=== PATIENT | female | born 1930 | race Caucasian/White ===

== ENCOUNTER 2018-05-18 08:07 | Inpatient (IN) ==
[2018-05-18] MEDS ORDERED: 0.9 % SODIUM CHLORIDE 1,000 ML IV ONE (08:47)
[2018-05-18] MEDS ORDERED: KETOROLAC 30 MG/ML VIAL IV ONE (08:49)
--- NOTE | 2018-05-18 08:52 | Emergency Department Note ---
Fall HPI - General Chief Complaint: Fall Stated Complaint: Fall, back pain Time Seen by Provider: 05/18/18 08:35 Source: patient, EMS Mode of arrival: EMS Limitations: altered mental status - History of Present Illness HPI Narrative: 87-year-old female comes in today status post fall via EMS. Relatively poor historian rambling-she keeps insisting she had labs done last week when in fact there were 2 months ago. She had elevated blood pressure and temperature. Apparently the fall situation was after she took a medicine she felt weak she sort of lost her balance when she reached forward and slid herself to the floor and since then has been having some lower back pain. She states she has not urinated this morning nor is she taking most of her medicines. She did not lose consciousness or hit her head. Recently diagnosed with Parkinson's - Related Data Previous Rx's Medication Instructions Recorded cholecalciferol (vitamin D3) 5,000 5,000 unit PO .COMPLEX #4 cap 04/09/15 unit capsule tizanidine 4 mg capsule 2 mg PO TID #135 cap 06/04/15 citalopram 20 mg tablet 20 mg PO BID 30 Days #60 tab 09/05/15 doxepin 50 mg capsule 150 mg PO QHS 30 Days #90 cap 09/05/15 ergocalciferol (vitamin D2) 50,000 50,000 unit PO QWEEK #8 cap 09/05/15 unit capsule oxybutynin chloride ER 5 mg 5 mg PO QDAY #30 tab 09/05/15 tablet,extended release 24 hr isosorbide mononitrate ER 30 mg 30 mg PO QAM #90 tab 09/09/15 tablet,extended release 24 hr albuterol sulfate HFA 90 2 puff INHALATION Q6H #18 g 09/29/15 mcg/actuation aerosol inhaler hydrocodone 7.5 mg-ibuprofen 200 1 tab PO QID PRN #90 tab 11/03/15 mg tablet nitroglycerin 0.4 mg sublingual 0.4 mg SUBLINGUAL Q5M PRN #25 tab 01/07/16 tablet HYDROcodone/APAP 10/325MG [[place] 1 tab PO Q4H PRN #15 tablet 09/06/16 10/325Mg] Allergies Allergy/AdvReac Type Severity Reaction Status Date / Time acetaminophen [From Tylenol] AdvReac Unknown Unknown Verified 05/18/18 08:09 Review of Systems All systems ED: reviewed and negative except as stated. Fall PMH - Past Medical History Attestation: Yes: The following information was validated with the patient. [facility] Narrative: Family History Unknown Asthma Atherosclerosis of coronary artery Mother Chronic obstructive pulmonary disease Father Malignant neoplasm of colon Medical History Rib fracture (Acute) Compression fracture (Acute) Ribs, multiple fractures (Acute) Hematoma (Acute) Vitamin D deficiency (Chronic) Stricture and stenosis of esophagus (Chronic) Prediabetes (Chronic) Osteoporosis (Chronic) Osteoarthritis (Chronic) Menopausal syndrome (Chronic) Hypertension, essential (Chronic) Hyperlipidemia (Chronic) History of colonic polyps (Chronic) Chronic obstructive pulmonary disease (Chronic) Past Surgical History History of adenoidectomy (Resolved) History of arthroplasty of left hip (Resolved) History of cataract surgery (Resolved) History of ear surgery (Resolved) History of tonsillectomy (Resolved) History of umbilical hernia repair (Resolved) History of varicose vein stripping (Resolved) Medical history: Reports: asthma, COPD, hyperlipidemia, hypertension, osteoporosis, other (pneumonia on antibiotics) Psychiatric history: Reports: depression - Social History smoking status: Current every day smoker Alcohol use: Reports: None Drug use: Reports: none Physical Exam Normocephalic atraumatic. Conjunctive are clear sclerae nonicteric. No nasal discharge or congestion. Oropharynx is pink and moist. Neck is supple without lymphadenopathy thyromegaly or carotid bruit. Heart is regular rate and rhythm no murmur appreciated. Lungs are clear to auscultation bilaterally without wheezes rales rhonchi or respiratory distress. Abdomen is soft nontender nondistended. Normoactive bowel sounds. No peritoneal signs or guarding. No pedal edema. +2 radial pulse. Alert oriented. Seems to have some short-term memory deficit. I did examine her lower back as much as she would allow me to. She says it hurts for her to sit up; I do not feel any definite step-off or deformity. Pain is located at the right paraspinal area and is worse with palpation. Leg movement does not seem to exacerbate it. Does not radiate. Limitations: altered mental status Course Vital Signs Temperature 97.0 F 05/18/18 08:09 Pulse Rate 78 05/18/18 08:09 Respiratory Rate 16 05/18/18 08:09 Blood Pressure 147/93 05/18/18 08:09 Pulse Oximetry (%) 95 05/18/18 08:09 Temperature 97.0 F 05/18/18 08:09 Pulse Rate 78 05/18/18 08:13 Respiratory Rate 16 05/18/18 08:09 Blood Pressure 147/93 05/18/18 08:13 Pulse Oximetry (%) 97 05/18/18 08:13 Disposition Pt seen by STORYBOARD ARTIST/PA only: No Summary: After interviewing and examining patient ordered workup with laboratory and x- ray. Patient will be checked out to Dr. Sams at shift change for follow-up on the studies, further care and disposition Disposition: Still a Patient Condition: Fair Referrals: Swati Randhawa ARNP [Primary Care Provider] -
[2018-05-18 09:33] LABS: Basophils # (Auto) 0 K/mcL (0.0-0.3); Basophils % (Auto) 0.2 % (0.0-2.0); Eosinophils # (Auto) 0 K/mcL (0.0-0.7); Eosinophils % (Auto) 0.4 % (0.0-7.0); Granulocytes % (Auto) 73.1 % (38.0-78.0); Lymphocytes # (Auto) 1.3 K/mcL (1.5-4.8); Lymphocytes % (Auto) 18.2 % (15.5-49.0); Mean Cell Volume 90.6 fL (80.0-100.0); Mean Corpuscular HGB Conc 33.3 g/dL (31.0-36.0); Mean Corpuscular Hemoglobin 30.2 pg (26.0-34.0); Monocytes # (Auto) 0.6 K/mcL (0.1-0.9); Monocytes % (Auto) 8.1 % (1.0-12.0); Platelet Count 286 K/mcL (140-440); RBC 4.52 M/mcL (4.00-5.20); Red Cell Distribution Width 14.2 % (11.5-14.5)
[2018-05-18 09:56] LABS: ALT/SGPT 13 U/l (0-40); Albumin 3.7 gm/dL (3.2-5.2); Albumin/Globulin Ratio 1.4 (1.0-2.3); Alkaline Phosphatase 62 U/L (39-117); Blood Urea Nitrogen 14 mg/dl (8-23)
--- NOTE | 2018-05-18 10:11 | XRay Report ---
HISTORY: Low back pain after a fall FINDINGS: There is a mild to moderate rotatory scoliotic curvature with the convexity to the left. The bones are osteopenic. There is a mild depression deformity involving the superior endplate of L4. This was probably present at the time the prior hip x-ray done in 2011. No acute fracture is identified. There are large bridging spurs throughout the thoracic spine extending down to the L1-2 level. There are small to intermediate size spurs around the margins of the disks throughout the mid and lower lumbar spine. There is also arthritis in the facet joints from L3-4 to L5-S1. The disc spaces are normal in height. Patient has bilateral total hip prosthesis. Densely calcified plaques are present in the aorta and iliac arteries. IMPRESSION: Mild compression fracture at L4 which appears to be old. 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
[2018-05-18 10:24] LABS: Appearance,Urine CLEAR; Bilirubin,Urine NEG (NEG); Color,Urine YELLOW; Glucose,Urine (UA) NEGATIVE (NEG); Leukocyte Esterase,Urine NEG /uL (NEG); Protein,Urine NEG (NEG); Specific Gravity,Urine 1.016 (1.000-1.035); Urine Blood NEG mg/dL (<0.03); Urobilinogen,Urine NEG (NEG)
--- NOTE | 2018-05-18 11:24 | Emergency Department Note ---
Fall HPI - General Chief Complaint: Fall Stated Complaint: Fall, back pain Time Seen by Provider: 05/18/18 08:35 Source: patient, EMS Mode of arrival: EMS - Related Data Previous Rx's Medication Instructions Recorded cholecalciferol (vitamin D3) 5,000 5,000 unit PO .COMPLEX #4 cap 04/09/15 unit capsule tizanidine 4 mg capsule 2 mg PO TID #135 cap 06/04/15 citalopram 20 mg tablet 20 mg PO BID 30 Days #60 tab 09/05/15 doxepin 50 mg capsule 150 mg PO QHS 30 Days #90 cap 09/05/15 ergocalciferol (vitamin D2) 50,000 50,000 unit PO QWEEK #8 cap 09/05/15 unit capsule oxybutynin chloride ER 5 mg 5 mg PO QDAY #30 tab 09/05/15 tablet,extended release 24 hr isosorbide mononitrate ER 30 mg 30 mg PO QAM #90 tab 09/09/15 tablet,extended release 24 hr albuterol sulfate HFA 90 2 puff INHALATION Q6H #18 g 09/29/15 mcg/actuation aerosol inhaler hydrocodone 7.5 mg-ibuprofen 200 1 tab PO QID PRN #90 tab 11/03/15 mg tablet nitroglycerin 0.4 mg sublingual 0.4 mg SUBLINGUAL Q5M PRN #25 tab 01/07/16 tablet HYDROcodone/APAP 10/325MG [[place] 1 tab PO Q4H PRN #15 tablet 09/06/16 10/325Mg] Allergies Allergy/AdvReac Type Severity Reaction Status Date / Time acetaminophen [From Tylenol] AdvReac Unknown Unknown Verified 05/18/18 08:09 Fall PMH - Past Medical History Medical history: Reports: asthma, COPD, hyperlipidemia, hypertension, osteoporosis, other (pneumonia on antibiotics) Psychiatric history: Reports: depression - Social History smoking status: Current every day smoker Alcohol use: Reports: None Drug use: Reports: none Physical Exam Limitations: altered mental status Course Vital Signs Temperature 97.0 F 05/18/18 08:09 Pulse Rate 78 05/18/18 08:09 Respiratory Rate 16 05/18/18 08:09 Blood Pressure 147/93 05/18/18 08:09 Pulse Oximetry (%) 95 05/18/18 08:09 Temperature 97.0 F 05/18/18 08:09 Pulse Rate 77 05/18/18 10:04 Respiratory Rate 16 05/18/18 08:09 Blood Pressure 152/110 05/18/18 09:50 Pulse Oximetry (%) 95 05/18/18 10:04 Fall - MDM Narrative Medical decision making narrative: Labs reviewed. Patient reassessed, on head to toe examination she does not have any cervical spine tenderness, she does have quite a lot of pain over the lumbar area, x-rays reviewed it. 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 Diagnosis at this time is lumbar spine pain, lumbar fracture, questionable age. Dementia. Inability to function at home, uncontrolled Parkinson's. Discussed hospital admission with Dr. Betancur. He will reevaluate the situation. - Lab Data Result diagrams: 05/18/18 09:06 05/18/18 09:06 Lab Results 05/18/18 05/18/18 05/18/18 Range/Units 09:06 09:06 09:06 WBC 6.9 (4.5-11.0) K/mcL RBC 4.52 (4.00-5.20) M/mcL Hgb 13.6 (12.0-15.0) g/dL Hct 40.9 (36.0-48.0) % MCV 90.6 (80.0-100.0) fL MCH 30.2 (26.0-34.0) pg MCHC 33.3 (31.0-36.0) g/dL RDW 14.2 (11.5-14.5) % Plt Count 286 (140-440) K/mcL MPV 7.6 (7.4-10.4) fL Gran % 73.1 (38.0-78.0) % Lymph % (Auto) 18.2 (15.5-49.0) % [place] % (Auto) 8.1 (1.0-12.0) % Eos % (Auto) 0.4 (0.0-7.0) % Baso % (Auto) 0.2 (0.0-2.0) % Gran # 5.1 (1.8-8.0) K/mcL Lymph # (Auto) 1.3 L (1.5-4.8) K/mcL [place] # (Auto) 0.6 (0.1-0.9) K/mcL Eos # (Auto) 0 (0.0-0.7) K/mcL Baso # (Auto) 0 (0.0-0.3) K/mcL VBG Lactic Acid 0.9 (0.5-2.0) mmol/L Sodium 127 L (133-145) mmol/L Potassium 4.0 (3.3-5.1) mmol/L Chloride 89 L (96-108) mmol/L Carbon Dioxide 27 (22-30) mmol/L Anion Gap 11.0 (8-16) BUN 14 (8-23) mg/dl Creatinine 0.5 L (0.6-1.1) mg/dl GFR Calculation 88 Glucose 121 H (70-105) mg/dL Calcium 9.4 (8.6-10.4) mg/dl Total Bilirubin 0.4 (0.0-1.0) mg/dL AST 22 (0-37) U/l ALT 13 (0-40) U/l Alkaline Phosphatase 62 (39-117) U/L Total Protein 6.4 (5.9-8.4) gm/dL Albumin 3.7 (3.2-5.2) gm/dL Globulin 2.7 (2.2-3.7) gm/dL Albumin/Globulin Ratio 1.4 (1.0-2.3) Urine Color Urine Appearance Urine pH (5.0-9.0) Ur Specific [place] (1.000-1.035) Urine Protein (NEG) mg/dL Urine Glucose (UA) (NEG) mg/dL Urine Ketones (NEG) mg/dL Urine Occult Blood (<0.03) mg/dL Urine Nitrate (NEG) Urine Bilirubin (NEG) mg/dL Urine Urobilinogen (NEG) mg/dL Ur Leukocyte Esterase (NEG) /uL Ur Culture Indicated? 05/18/18 Range/Units 09:26 WBC (4.5-11.0) K/mcL RBC (4.00-5.20) M/mcL Hgb (12.0-15.0) g/dL Hct (36.0-48.0) % MCV (80.0-100.0) fL MCH (26.0-34.0) pg MCHC (31.0-36.0) g/dL RDW (11.5-14.5) % Plt Count (140-440) K/mcL MPV (7.4-10.4) fL Gran % (38.0-78.0) % Lymph % (Auto) (15.5-49.0) % [place] % (Auto) (1.0-12.0) % Eos % (Auto) (0.0-7.0) % Baso % (Auto) (0.0-2.0) % Gran # (1.8-8.0) K/mcL Lymph # (Auto) (1.5-4.8) K/mcL [place] # (Auto) (0.1-0.9) K/mcL Eos # (Auto) (0.0-0.7) K/mcL Baso # (Auto) (0.0-0.3) K/mcL VBG Lactic Acid (0.5-2.0) mmol/L Sodium (133-145) mmol/L Potassium (3.3-5.1) mmol/L Chloride (96-108) mmol/L Carbon Dioxide (22-30) mmol/L Anion Gap (8-16) BUN (8-23) mg/dl Creatinine (0.6-1.1) mg/dl GFR Calculation Glucose (70-105) mg/dL Calcium (8.6-10.4) mg/dl Total Bilirubin (0.0-1.0) mg/dL AST (0-37) U/l ALT (0-40) U/l Alkaline Phosphatase (39-117) U/L Total Protein (5.9-8.4) gm/dL Albumin (3.2-5.2) gm/dL Globulin (2.2-3.7) gm/dL Albumin/Globulin Ratio (1.0-2.3) Urine Color Yellow Urine Appearance Clear Urine pH 6.0 (5.0-9.0) Ur Specific [place] 1.016 (1.000-1.035) Urine Protein Neg (NEG) mg/dL Urine Glucose (UA) Negative (NEG) mg/dL Urine Ketones 20 A (NEG) mg/dL Urine Occult Blood Neg (<0.03) mg/dL Urine Nitrate Neg (NEG) Urine Bilirubin Neg (NEG) mg/dL Urine Urobilinogen Neg (NEG) mg/dL Ur Leukocyte Esterase Neg (NEG) /uL Ur Culture Indicated? No Disposition Pt seen by MECHANISM ASSEMBLER/PA only: No Clinical Impression: Lumbar back pain Disposition: Still a Patient Condition: Fair Referrals: Swati Randhawa ARNP [Primary Care Provider] -
--- NOTE | 2018-05-18 13:49 | XRay Report ---
HISTORY: Fell with pelvic injury FINDINGS: Portable AP view of the pelvis was obtained. There is no evidence of a fracture or dislocation. Patient has well-positioned bilateral total hip prosthesis. There is no reabsorption of bone around the hardware. The bones are osteopenic. Arthritis is noted in the lower lumbar spine. IMPRESSION: No fracture Interpreted and Authenticated by: Mayur Welch 05/18/18
--- NOTE | 2018-05-18 14:53 | Internal Med History&Physical ---
Medical - H&P: HPI Patient information: Note initiated : 05/18/18 at 2:50 pm Service Date, if different from initiated Date: [] Patient: Jessica Higgins a 87 y/o F admitted on for Fall, Back Pain. Chief Complaint: [] History of present illness: Ms. Higgins is a 87 year old F with h/o anxiety, chronic pain, presens to the ER today after being brought by EMS for evaluation of fall. The patient is a very poor history provider, and we are unable to get a clear picture of why she is present to the emergency room. On speaking with her she says she had fallen down but the timeline she gives is many years ago. She notes she has had constant pain and the pain was getting worse over the period of time and that is what she came in. On reviewing the notes in triage it seems that the patient fell down early this morning slipped down on her buttocks and called EMS to bring her in. The patient has pain in the lower back and the right side of the hip. The patient denies any head injury, changes in vision difficulty in swallowing she has chronic hearing loss, she has chronic dizziness. There is a questionable diagnosis of Parkinson's disease which cannot be verified, the patient notes pain in the lower back in the right hip, predominantly in the right hip region. She denies any nausea vomiting she is incontinent to urine and her diaper is full during my exam. Patient denies any chest pain cough or shortness of breath. She denies any fever chills. Denies any new joint pain any skin rash. Does have anxiety. In the emergency room on presentation patient was afebrile with a temperature of 97, heart rate 78 blood pressure 147 x 93 saturating 93% on room air. Labs showed a WBC count of 6.9 hemoglobin 13.6, lactic acid 0.9 sodium 127 potassium 4.0 chloride 89 bicarbonate 27 creatinine 0.5 urinalysis is negative. Lumbar x- ray shows old L4 compression fracture and degenerative joint disease of the spine. Pelvis x-rays is negative for any acute fractures. The patient was unable to walk in the ER. She did noted that she had significant pain. Despite getting Toradol the patient did not walk. She did not eat much and had spell of urine in her indicating that she probably has been incontinent. The patient is being admitted to observation for further management at this time , will review with case management tomorrow to see if she meets inpt criteria All systems: reviewed and no additional remarkable complaints except as stated ( as per hpi rest negative) Medical - H&P: PMH Medical history: Medical History Rib fracture (Acute) Compression fracture (Acute) Ribs, multiple fractures (Acute) Hematoma (Acute) Vitamin D deficiency (Chronic) Stricture and stenosis of esophagus (Chronic) Prediabetes (Chronic) Osteoporosis (Chronic) Osteoarthritis (Chronic) Menopausal syndrome (Chronic) Hypertension, essential (Chronic) Hyperlipidemia (Chronic) History of colonic polyps (Chronic) Chronic obstructive pulmonary disease (Chronic) Anxiety Chronic Pain Surgical history: Chandra hip replacement umbilical hernia repair Family history: reviewed and not pertinent Social history: light smoker no etoh, no recreational drug user lives in mobile home has state assigned healthcare financial analyst Medical - H&P: Meds Home Medications Medication Instructions Recorded Confirmed Type cholecalciferol (vitamin D3) 5,000 5,000 unit PO .COMPLEX #4 cap 04/09/15 Rx unit capsule tizanidine 4 mg capsule 2 mg PO TID #135 cap 06/04/15 05/18/18 Rx citalopram 20 mg tablet 20 mg PO BID 30 Days #60 tab 09/05/15 05/18/18 Rx doxepin 50 mg capsule 150 mg PO QHS 30 Days #90 cap 09/05/15 05/18/18 Rx ergocalciferol (vitamin D2) 50,000 50,000 unit PO QWEEK #8 cap 09/05/15 Rx unit capsule oxybutynin chloride ER 5 mg 5 mg PO QDAY #30 tab 09/05/15 05/18/18 Rx tablet,extended release 24 hr isosorbide mononitrate ER 30 mg 30 mg PO QAM #90 tab 09/09/15 05/18/18 Rx tablet,extended release 24 hr albuterol sulfate HFA 90 2 puff INHALATION Q6H #18 g 09/29/15 05/18/18 Rx mcg/actuation aerosol inhaler hydrocodone 7.5 mg-ibuprofen 200 1 tab PO QID PRN #90 tab 11/03/15 05/18/18 Rx mg tablet nitroglycerin 0.4 mg sublingual 0.4 mg SUBLINGUAL Q5M PRN #25 tab 01/07/1605/18 Rx tablet HYDROcodone/APAP 10/325MG [[place] 1 tab PO Q4H PRN #15 tablet 09/06/16 05/18/18 Rx 10/325Mg] Allergies Allergy/AdvReac Type Severity Reaction Status Date / Time acetaminophen [From Tylenol] AdvReac Unknown Unknown Verified 05/18/18 08:09 Medical - H&P: Exam - Constitutional Vitals: Temp Pulse Resp BP Pulse Ox 97.0 F 78 16 181/86 93 05/18/18 08:09 05/18/18 12:57 05/18/18 08:09 05/18/18 12:57 05/18/18 12:57 Exam: Constitutional; Afebrile, cooperative, alert, not in distress. Eyes- No icterus, , No periorbital swelling Ears- Ext ear normal, hearing normal to conversation. Neck- Midline trachea, supple Respiratory system: Air Entry equal on both sides, No crackles or wheezing, no rhonchi. CVS- Rate rhythm regular, S1,S2 heard, no gallop, no rub. Abdomen- Soft nontender abdomen, no organomegaly, no tenderness, no guarding or rigidity, ROAD MIXER OPERATOR- AOOx2-3 (got year wrong initially but later got year, month, president , place and self right) , moving all extremities, no gross focal deficit noted. right lower extremity pain in the right trochanteric region, tenderness in the right trochanteric Medical - H&P: Reslt - Labs CBC & Chem 7: 05/18/18 09:06 05/18/18 09:06 Labs: Short CBC 05/18/18 Range/Units 09:06 WBC 6.9 (4.5-11.0) K/mcL Hgb 13.6 (12.0-15.0) g/dL Hct 40.9 (36.0-48.0) % Plt Count 286 (140-440) K/mcL BMP 05/18/18 09:06 Sodium 127 L Potassium 4.0 Chloride 89 L Carbon Dioxide 27 BUN 14 Creatinine 0.5 L Glucose 121 H Calcium 9.4 Liver Function 05/18/18 Range/Units 09:06 Total Bilirubin 0.4 (0.0-1.0) mg/dL AST 22 (0-37) U/l ALT 13 (0-40) U/l Alkaline Phosphatase 62 (39-117) U/L Albumin 3.7 (3.2-5.2) gm/dL Urine 05/18/18 Range/Units 09:26 Urine Color Yellow Urine Appearance Clear Urine pH 6.0 (5.0-9.0) Ur Specific [place] 1.016 (1.000-1.035) Urine Protein Neg (NEG) mg/dL Urine Glucose (UA) Negative (NEG) mg/dL Medical - H&P: A/P - Narrative A/P Narrative: A/P Hip/ Back pain- No e/o fracture, pain management, OT/PT to help mobilize pt, at baseline it seems she uses a walker/cane. lives in mobile home by self, has a healthcare financial analyst Failure to thrive, - living by self, decreased oral intake, falls, labs are stable, will get case management involved. Hyponatremia- sodium 127, was 131-132 before, not a significant change, IV fluids for now, likely some component of dehydration. chronic pain- Pt is allergic to tylenol, start on celecoxib, oxycodone and prn dilaudid, see how she does, senna for bowel regime. Insomnia- doxepin qhs Anxiety/Depression- bupropion and abilify as per last Psych note. Continue same DVT hep sq Diet regular Full code
[2018-05-18] MEDS ORDERED: NITROGLYCERIN 0.4 MG TAB.SUBL SL PRN (15:04)
[2018-05-18] MEDS ORDERED: ALBUTEROL SULFATE 2.5 MG/3 ML NEBULIZER NEB PRN (15:04)
[2018-05-18] MEDS ORDERED: oxyCODONE/APAP 5/325MG TABLET PO PRN (15:04)
[2018-05-18] MEDS ORDERED: NALOXONE HCL 0.4 MG/ML VIAL IV PRN (15:04)
[2018-05-18] MEDS ORDERED: ONDANSETRON 4 MG/2 ML VIAL IV PRN (15:04)
[2018-05-18] MEDS ORDERED: HYDROmorphone 2 MG/ML VIAL IV PRN (15:04)
[2018-05-18] MEDS: buPROPion 150 MG TAB.XL.24H PO SCH (15:26)
[2018-05-18] MEDS ORDERED: oxyCODONE HCL 5 MG TABLET PO PRN (15:30)
[2018-05-18] MEDS: ARIPIPRAZOLE 5 MG TABLET PO SCH (15:53)
[2018-05-18] MEDS: DEXTROSE 5%-NS W/20MEQ KCL 1,000 ML IV SCH (15:54)
[2018-05-18] MEDS: MULTIVIT,THER IRON,CA,FA & MIN 1 TABLET PO SCH (15:54)
[2018-05-18] MEDS: THIAMINE 100 MG TABLET PO SCH (15:54)
[2018-05-18] MEDS: GABAPENTIN 100 MG CAPSULE PO SCH (17:20)
[2018-05-18] MEDS: CELECOXIB 200 MG CAPSULE PO SCH (20:12)
[2018-05-18] MEDS: SENNOSIDES 1 TABLET PO SCH (20:13)
[2018-05-18] MEDS: HEPARIN 5,000 UNIT/ML VIAL SQ SCH (20:17)
[2018-05-18] MEDS ORDERED: DOXEPIN 25 MG CAPSULE PO PRN (21:00)
[2018-05-18] MEDS: 0.9 % SODIUM CHLORIDE 10 ML SYRINGE IV SCH (22:45)
[2018-05-19] MEDS: 0.9 % SODIUM CHLORIDE 10 ML SYRINGE IV SCH ×4 (00:38→21:10)
[2018-05-19] MEDS: GABAPENTIN 100 MG CAPSULE PO SCH ×2 (00:39→06:25)
[2018-05-19] MEDS: DEXTROSE 5%-NS W/20MEQ KCL 1,000 ML IV SCH ×3 (00:58→21:09)
[2018-05-19 06:29] LABS: Basophils # (Auto) 0 K/mcL (0.0-0.3); Basophils % (Auto) 0.3 % (0.0-2.0); Eosinophils # (Auto) 0.1 K/mcL (0.0-0.7); Eosinophils % (Auto) 0.7 % (0.0-7.0); Granulocytes % (Auto) 70.1 % (38.0-78.0); Lymphocytes # (Auto) 1.4 K/mcL (1.5-4.8); Lymphocytes % (Auto) 18.2 % (15.5-49.0); Mean Cell Volume 89.9 fL (80.0-100.0); Mean Corpuscular HGB Conc 33.5 g/dL (31.0-36.0); Mean Corpuscular Hemoglobin 30.2 pg (26.0-34.0); Monocytes # (Auto) 0.8 K/mcL (0.1-0.9); Monocytes % (Auto) 10.7 % (1.0-12.0); Platelet Count 291 K/mcL (140-440); RBC 4.27 M/mcL (4.00-5.20); Red Cell Distribution Width 13.9 % (11.5-14.5)
[2018-05-19 06:46] LABS: ALT/SGPT 13 U/l (0-40); Albumin 3.5 gm/dL (3.2-5.2); Albumin/Globulin Ratio 1.7 (1.0-2.3); Alkaline Phosphatase 54 U/L (39-117); Bilirubin,Direct < 0.2 mg/dL (0.0-0.3); Blood Urea Nitrogen 7 mg/dl (8-23); Gamma Glutamyl Transpeptidase 18 U/L (5-36); Uric Acid 2.6 mg/dL (2.5-8.0)
[2018-05-19] MEDS: OXYBUTYNIN CHLORIDE 5 MG TAB.XL.24H PO SCH (08:19)
[2018-05-19] MEDS: VITAMIN D3 5,000 UNIT CAPSULE PO SCH (08:19)
[2018-05-19] MEDS: ARIPIPRAZOLE 5 MG TABLET PO SCH (08:19)
[2018-05-19] MEDS: ISOSORBIDE MONONITRATE 30 MG TAB.XL.24H PO SCH (08:22)
[2018-05-19] MEDS: HEPARIN 5,000 UNIT/ML VIAL SQ SCH ×2 (08:22→21:02)
[2018-05-19] MEDS: THIAMINE 100 MG TABLET PO SCH (08:22)
[2018-05-19] MEDS: buPROPion 150 MG TAB.XL.24H PO SCH (08:22)
[2018-05-19] MEDS: MULTIVIT,THER IRON,CA,FA & MIN 1 TABLET PO SCH (08:22)
[2018-05-19] MEDS ORDERED: POTASSIUM CHLORIDE 20 MEQ PACKET PO ONE (08:27)
--- NOTE | 2018-05-19 14:03 | Internal Med Progress Note ---
Medical - PN: Subj Patient information: Note initiated : 05/19/18 at 2:00 pm Service Date, if different from initiated Date: [] Patient: Jessica Higgins a 87 y/o F admitted on 05/18/18 for Fall, Back Pain. Chief Complaint: [] Interval history: Ms. Higgins is a 87 year old F with h/o anxiety, chronic pain, presens to the ER today after being brought by EMS for evaluation of fall. The patient is a very poor history provider, and we are unable to get a clear picture of why she is present to the emergency room. On speaking with her she says she had fallen down but the timeline she gives is many years ago. She notes she has had constant pain and the pain was getting worse over the period of time and that is what she came in. On reviewing the notes in triage it seems that the patient fell down early this morning slipped down on her buttocks and called EMS to bring her in. The patient has pain in the lower back and the right side of the hip. The patient denies any head injury, changes in vision difficulty in swallowing she has chronic hearing loss, she has chronic dizziness. There is a questionable diagnosis of Parkinson's disease which cannot be verified, the patient notes pain in the lower back in the right hip, predominantly in the right hip region. She denies any nausea vomiting she is incontinent to urine and her diaper is full during my exam. Patient denies any chest pain cough or shortness of breath. She denies any fever chills. Denies any new joint pain any skin rash. Does have anxiety. In the emergency room on presentation patient was afebrile with a temperature of 97, heart rate 78 blood pressure 147 x 93 saturating 93% on room air. Labs showed a WBC count of 6.9 hemoglobin 13.6, lactic acid 0.9 sodium 127 potassium 4.0 chloride 89 bicarbonate 27 creatinine 0.5 urinalysis is negative. Lumbar x- ray shows old L4 compression fracture and degenerative joint disease of the spine. Pelvis x-rays is negative for any acute fractures. The patient was unable to walk in the ER. She did noted that she had significant pain. Despite getting Toradol the patient did not walk. She did not eat much and had spell of urine in her indicating that she probably has been incontinent. The patient is being admitted to observation for further management at this time , will review with case management tomorrow to see if she meets inpt criteria 05/19 Pt seen examined, no acute overnight issues pt has been non compliant with IVF, medications since yesterday poor memory, has tangential thought process she is agreeable for placement if needed reviewed with case management, pt would qualify for inpti status, status changed Pertinent ROS: Denies headache, dizziness Denies chest pain, palpitations Denies cough or shortness of breath Denies abdominal pain, nausea or vomiting. back and hip pain present - Constitutional Vitals: Vital Signs Temp Pulse Resp BP Pulse Ox 97.8 F 77 14 161/86 95 05/19/18 12:00 05/19/18 03:22 05/19/18 12:00 05/19/18 12:00 05/19/18 12:00 Period Temp Pulse Resp BP Sys/Dorman Pulse Ox Last 24 Hr 97.0 F-98.3 F 64-78 14-20 154-181/65-90 93-97 Intake and Output 05/19/18 05/19/18 05/19/18 05:59 13:59 21:59 Intake Total 180 / 180 Output Total 55 / 55 Balance 125 / 125 -1 / -1 Weight 153 lb 5 oz Patient Weight 05/20/18 05:59 Weight 153 lb 5 oz Intake & Output: Intake & Output 05/19/18 05/19/18 05/19/18 05:59 13:59 21:59 Intake Total 180 / 180 Output Total 55 / 55 Balance 125 / 125 -1 / -1 Weight 153 lb 5 oz Intake: Oral 180 / 180 Output: Void Amount 50 / 50 # of times incontinent of urine Exam: Constitutional; Afebrile, cooperative, alert, not in distress. Respiratory system: Air Entry equal on both sides, No crackles or wheezing, no rhonchi. CVS- Rate rhythm regular, S1,S2 heard, no gallop, no rub. Abdomen- Soft nontender abdomen, no organomegaly, no tenderness, no guarding or rigidity, [employer]- AOOx3, moving all extremities, no gross focal deficit noted. Medical - PN: Obj Da - Labs CBC & Chem 7: 05/19/18 05:05 05/19/18 05:05 Labs: Abnormal Lab Results 05/19/18 05/19/18 05/18/18 05:05 05:05 09:26 Lymph # (Auto) 1.4 L Sodium 128 L Potassium 3.1 L Chloride 91 L BUN 7 L Creatinine 0.4 L Glucose 112 H Phosphorus 2.4 L Total Protein 5.6 L Globulin 2.1 L Urine Ketones 20 A 05/18/18 05/18/18 09:06 09:06 Lymph # (Auto) 1.3 L Sodium 127 L Potassium Chloride 89 L BUN Creatinine 0.5 L Glucose 121 H Phosphorus Total Protein Globulin Urine Ketones Meds: Medications Albuterol Sulfate (Ventolin) 2.5 mg NEB Q2HP PRN PRN Reason: Shortness Of Breath Bupropion HCl (Wellbutrin Xl) 300 mg PO DAILY [facility] Last Admin: 05/19/18 08:22 Dose: Not Given Celecoxib (Celebrex) 200 mg PO HS [facility] Last Admin: 05/18/18 20:12 Dose: 200 mg Doxepin HCl (Sinequan) 0 mg PO HSP PRN PRN Reason: Insomnia Heparin Sodium (Porcine) (Heparin) 5,000 unit SQ Q12 [facility] Last Admin: 05/19/18 08:22 Dose: Not Given Hydromorphone HCl (Dilaudid) 0.5 mg IV Q2HP PRN PRN Reason: PAIN LEVEL > 6 Potassium Chloride/Dextrose/Sod Cl (Dextrose 5%-Ns W/20meq Kcl) 1,000 mls @ 100 mls/hr IV .Q10H [facility] Last Admin: 05/19/18 10:43 Dose: Not Given Iron Carb/Multivit/[place]/Folic Acid (Multivitamin W/Minerals) 1 tab PO DAILY [facility] Last Admin: 05/19/18 08:22 Dose: Not Given Isosorbide Mononitrate (Imdur) 30 mg PO QAM [facility] Last Admin: 05/19/18 08:22 Dose: Not Given Naloxone HCl (Narcan) 0.1 mg IV Q2MIN PRN PRN Reason: Opiate Reversal Nitroglycerin (Nitrostat) 0.4 mg SL Q5M PRN PRN Reason: chest pain Ondansetron HCl (Zofran) 4 mg IV Q6HP PRN PRN Reason: Nausea And Vomiting Oxybutynin Chloride (Ditropan Xl) 5 mg PO QDAY [facility] Last Admin: 05/19/18 08:19 Dose: Not Given Oxycodone HCl (Roxicodone) 5 mg PO Q4HP PRN PRN Reason: PAIN LEVEL 3-6 Senna (Senokot) 2 tab PO HS [facility] Last Admin: 05/18/18 20:13 Dose: 2 tab Sodium Chloride (Saline Flush) 10 ml IV Q8 [facility] Last Admin: 05/19/18 06:25 Dose: Not Given Thiamine HCl (Vitamin B1) 100 mg PO DAILY [facility] Last Admin: 05/19/18 08:22 Dose: Not Given Vitamin D (Vitamin D3) 5,000 unit PO [facility] Last Admin: 05/19/18 08:19 Dose: Not Given Medical - PN: A/P - Time Spent With Patient Total time spent is greater than 50% in coordination of care (as documented) at patient's floor/unit and/or counseling patient: - Narrative A/P Narrative: A/P Hip/ Back pain- No e/o fracture, pain management, OT/PT to help mobilize pt, at baseline it seems she uses a walker/cane. lives in mobile home by self, has a day care supervisor, She is willing to go to rehab if needed. Celecoxib for now, with oxycodone as needed Failure to thrive, - living by self, poorly kept, but ate 100percent of her dinner last night. encourage oral intake Hyponatremia- sodium 128 today, improved, encourage IVF for now ,decreased same. chronic pain- Pt is allergic to tylenol, start on celecoxib, oxycodone and prn dilaudid, see how she does, senna for bowel regime. Insomnia- doxepin qhs Anxiety/Depression- bupropion and abilify as per last Psych note. Continue same DVT hep sq Diet regular Full code Medical - PN: Qual - VTE Deep Vein Thrombosis/Pulmonary Embolism Present on Admission: No
--- NOTE | 2018-05-19 14:21 | Internal Med Progress Note ---
Medical - PN: Subj Patient information: Note initiated : 05/19/18 at 2:18 pm Service Date, if different from initiated Date: [] Patient: Jessica Higgins a 87 y/o F admitted on 05/18/18 for Fall, Back Pain. Chief Complaint: [] Interval history: Ms. Higgins is a 87 year old F with h/o anxiety, chronic pain, presens to the ER today after being brought by EMS for evaluation of fall. The patient is a very poor history provider, and we are unable to get a clear picture of why she is present to the emergency room. On speaking with her she says she had fallen down but the timeline she gives is many years ago. She notes she has had constant pain and the pain was getting worse over the period of time and that is what she came in. On reviewing the notes in triage it seems that the patient fell down early this morning slipped down on her buttocks and called EMS to bring her in. The patient has pain in the lower back and the right side of the hip. The patient denies any head injury, changes in vision difficulty in swallowing she has chronic hearing loss, she has chronic dizziness. There is a questionable diagnosis of Parkinson's disease which cannot be verified, the patient notes pain in the lower back in the right hip, predominantly in the right hip region. She denies any nausea vomiting she is incontinent to urine and her diaper is full during my exam. Patient denies any chest pain cough or shortness of breath. She denies any fever chills. Denies any new joint pain any skin rash. Does have anxiety. In the emergency room on presentation patient was afebrile with a temperature of 97, heart rate 78 blood pressure 147 x 93 saturating 93% on room air. Labs showed a WBC count of 6.9 hemoglobin 13.6, lactic acid 0.9 sodium 127 potassium 4.0 chloride 89 bicarbonate 27 creatinine 0.5 urinalysis is negative. Lumbar x- ray shows old L4 compression fracture and degenerative joint disease of the spine. Pelvis x-rays is negative for any acute fractures. The patient was unable to walk in the ER. She did noted that she had significant pain. Despite getting Toradol the patient did not walk. She did not eat much and had spell of urine in her indicating that she probably has been incontinent. The patient is being admitted to observation for further management at this time , will review with case management tomorrow to see if she meets inpt criteria 05/19 Pt seen examined, no acute overnight issues pt has been non compliant with IVF, medications since yesterday poor memory, has tangential thought process she is agreeable for placement if needed reviewed with case management, pt would qualify for inpti status, status changed 05/20 - Constitutional Vitals: Vital Signs Temp Pulse Resp BP Pulse Ox 97.8 F 77 14 161/86 95 05/19/18 12:00 05/19/18 03:22 05/19/18 12:00 05/19/18 12:00 05/19/18 12:00 Period Temp Pulse Resp BP Sys/Dorman Pulse Ox Last 24 Hr 97.0 F-98.3 F 64-78 14-20 154-181/65-90 93-97 Intake and Output 05/19/18 05/19/18 05/19/18 05:59 13:59 21:59 Intake Total 180 / 180 Output Total 55 / 55 Balance 125 / 125 -1 / -1 Weight 69.541 kg Patient Weight 05/20/18 05:59 Weight 69.541 kg Intake & Output: Intake & Output 05/19/18 05/19/18 05/19/18 05:59 13:59 21:59 Intake Total 180 / 180 Output Total 55 / 55 Balance 125 / 125 -1 / -1 Weight 69.541 kg Intake: Oral 180 / 180 Output: Void Amount 50 / 50 # of times incontinent of urine 5 / 5 Exam: General: Alert, Awake, No acute Distress Eyes/N/T: EOMI Head/Neck: neck supple, CV: RRR, No murmurs, normal s1/s2 Pulm: Clear b/l, no wheezing/rhonchi/rales Abd: soft, nontender, +BS x4 Ext: no clubbing/cyanosis/edema Neuro: Alert, no focal deficits, moves all extremities Skin: warm/dry Medical - PN: Obj Da - Labs CBC & Chem 7: 05/19/18 05:05 05/19/18 05:05 Labs: Abnormal Lab Results 05/19/18 05/19/18 05/18/18 05:05 05:05 09:26 Lymph # (Auto) 1.4 L Sodium 128 L Potassium 3.1 L Chloride 91 L BUN 7 L Creatinine 0.4 L Glucose 112 H Phosphorus 2.4 L Total Protein 5.6 L Globulin 2.1 L Urine Ketones 20 A 05/18/18 05/18/18 09:06 09:06 Lymph # (Auto) 1.3 L Sodium 127 L Potassium Chloride 89 L BUN Creatinine 0.5 L Glucose 121 H Phosphorus Total Protein Globulin Urine Ketones Meds: Medications Albuterol Sulfate (Ventolin) 2.5 mg NEB Q2HP PRN PRN Reason: Shortness Of Breath Bupropion HCl (Wellbutrin Xl) 300 mg PO DAILY [facility] Last Admin: 05/19/18 08:22 Dose: Not Given Celecoxib (Celebrex) 200 mg PO HS [facility] Last Admin: 05/18/18 20:12 Dose: 200 mg Doxepin HCl (Sinequan) 0 mg PO HSP PRN PRN Reason: Insomnia Heparin Sodium (Porcine) (Heparin) 5,000 unit SQ Q12 [facility] Last Admin: 05/19/18 08:22 Dose: Not Given Hydromorphone HCl (Dilaudid) 0.5 mg IV Q2HP PRN PRN Reason: PAIN LEVEL > 6 Potassium Chloride/Dextrose/Sod Cl (Dextrose 5%-Ns W/20meq Kcl) 1,000 mls @ 100 mls/hr IV .Q10H [facility] Last Admin: 05/19/18 10:43 Dose: Not Given Iron Carb/Multivit/[place]/Folic Acid (Multivitamin W/Minerals) 1 tab PO DAILY [facility] Last Admin: 05/19/18 08:22 Dose: Not Given Isosorbide Mononitrate (Imdur) 30 mg PO QAM [facility] Last Admin: 05/19/18 08:22 Dose: Not Given Naloxone HCl (Narcan) 0.1 mg IV Q2MIN PRN PRN Reason: Opiate Reversal Nitroglycerin (Nitrostat) 0.4 mg SL Q5M PRN PRN Reason: chest pain Ondansetron HCl (Zofran) 4 mg IV Q6HP PRN PRN Reason: Nausea And Vomiting Oxybutynin Chloride (Ditropan Xl) 5 mg PO QDAY [facility] Last Admin: 05/19/18 08:19 Dose: Not Given Oxycodone HCl (Roxicodone) 5 mg PO Q4HP PRN PRN Reason: PAIN LEVEL 3-6 Senna (Senokot) 2 tab PO HS [facility] Last Admin: 05/18/18 20:13 Dose: 2 tab Sodium Chloride (Saline Flush) 10 ml IV Q8 [facility] Last Admin: 05/19/18 06:25 Dose: Not Given Thiamine HCl (Vitamin B1) 100 mg PO DAILY [facility] Last Admin: 05/19/18 08:22 Dose: Not Given Vitamin D (Vitamin D3) [facility] Last Admin: 05/19/18 08:19 Dose: Not Given Medical - PN: A/P - Time Spent With Patient Total time spent is greater than 50% in coordination of care (as documented) at patient's floor/unit and/or counseling patient: - Narrative A/P Narrative: A: *Hip/ Back pain: -No e/o fracture, pain management -at baseline it seems she uses a walker/cane *FTT: living by self, poorly kept *Hyponatremia: sodium 128 today, improved, encourage IVF for now ,decreased same. *chronic pain: *Insomina: *Anxiety/Depression *Dementia: P: -Celecoxib for now, with oxycodone as needed -PT/OT -encourage oral intake -doxepin qhs -cont home bupropion and abilify as per last Psych note -CM for placement - -ppx: heparin Medical - PN: Qual - VTE Deep Vein Thrombosis/Pulmonary Embolism Present on Admission: No
[2018-05-19] MEDS: ACETAMINOPHEN W/CODEINE #3 1 TABLET PO PRN (15:55)
[2018-05-19] MEDS: SODIUM CHLORIDE 1 GM TABLET PO SCH ×2 (15:55→21:02)
[2018-05-19] MEDS: CELECOXIB 200 MG CAPSULE PO SCH (21:02)
[2018-05-19] MEDS: SENNOSIDES 1 TABLET PO SCH (21:02)
[2018-05-20] MEDS: 0.9 % SODIUM CHLORIDE 10 ML SYRINGE IV SCH ×3 (05:27→23:58)
[2018-05-20] MEDS: DEXTROSE 5%-NS W/20MEQ KCL 1,000 ML IV SCH (06:30)
[2018-05-20 06:41] LABS: Basophils # (Auto) 0 K/mcL (0.0-0.3); Basophils % (Auto) 0.2 % (0.0-2.0); Eosinophils # (Auto) 0.1 K/mcL (0.0-0.7); Eosinophils % (Auto) 0.6 % (0.0-7.0); Granulocytes % (Auto) 75.4 % (38.0-78.0); Lymphocytes % (Auto) 16.7 % (15.5-49.0); Mean Cell Volume 91.3 fL (80.0-100.0); Mean Corpuscular HGB Conc 33.3 g/dL (31.0-36.0); Mean Corpuscular Hemoglobin 30.4 pg (26.0-34.0); Monocytes # (Auto) 0.8 K/mcL (0.1-0.9); Monocytes % (Auto) 7.1 % (1.0-12.0); Platelet Count 297 K/mcL (140-440); RBC 4.36 M/mcL (4.00-5.20); Red Cell Distribution Width 13.7 % (11.5-14.5)
[2018-05-20] MEDS: ISOSORBIDE MONONITRATE 30 MG TAB.XL.24H PO SCH (07:03)
[2018-05-20 07:09] LABS: ALT/SGPT 13 U/l (0-40); Albumin 3.5 gm/dL (3.2-5.2); Albumin/Globulin Ratio 1.5 (1.0-2.3); Alkaline Phosphatase 61 U/L (39-117); Bilirubin,Direct < 0.2 mg/dL (0.0-0.3); Blood Urea Nitrogen 7 mg/dl (8-23); Gamma Glutamyl Transpeptidase 19 U/L (5-36); Uric Acid 2.5 mg/dL (2.5-8.0)
[2018-05-20] MEDS ORDERED: ENALAPRILAT 1.25 MG/ML VIAL IV PRN (07:46)
[2018-05-20] MEDS ORDERED: DEXTROSE 5%-NS W/20MEQ KCL 1,000 ML IV SCH (07:48)
--- NOTE | 2018-05-20 07:51 | Internal Med Progress Note ---
Medical - PN: Subj Patient information: Note initiated : 05/20/18 at 7:45 am Service Date, if different from initiated Date: [] Patient: Jessica Higgins a 87 y/o F admitted on 05/18/18 for Fall, Back Pain. Chief Complaint: [] Interval history: Ms. Higgins is a 87 year old F with h/o anxiety, chronic pain, presens to the ER today after being brought by EMS for evaluation of fall. The patient is a very poor history provider, and we are unable to get a clear picture of why she is present to the emergency room. On speaking with her she says she had fallen down but the timeline she gives is many years ago. She notes she has had constant pain and the pain was getting worse over the period of time and that is what she came in. On reviewing the notes in triage it seems that the patient fell down early this morning slipped down on her buttocks and called EMS to bring her in. The patient has pain in the lower back and the right side of the hip. The patient denies any head injury, changes in vision difficulty in swallowing she has chronic hearing loss, she has chronic dizziness. There is a questionable diagnosis of Parkinson's disease which cannot be verified, the patient notes pain in the lower back in the right hip, predominantly in the right hip region. She denies any nausea vomiting she is incontinent to urine and her diaper is full during my exam. Patient denies any chest pain cough or shortness of breath. She denies any fever chills. Denies any new joint pain any skin rash. Does have anxiety. In the emergency room on presentation patient was afebrile with a temperature of 97, heart rate 78 blood pressure 147 x 93 saturating 93% on room air. Labs showed a WBC count of 6.9 hemoglobin 13.6, lactic acid 0.9 sodium 127 potassium 4.0 chloride 89 bicarbonate 27 creatinine 0.5 urinalysis is negative. Lumbar x- ray shows old L4 compression fracture and degenerative joint disease of the spine. Pelvis x-rays is negative for any acute fractures. The patient was unable to walk in the ER. She did noted that she had significant pain. Despite getting Toradol the patient did not walk. She did not eat much and had spell of urine in her indicating that she probably has been incontinent. The patient is being admitted to observation for further management at this time , will review with case management tomorrow to see if she meets inpt criteria 05/19 Pt seen examined, no acute overnight issues pt has been non compliant with IVF, medications since yesterday poor memory, has tangential thought process she is agreeable for placement if needed reviewed with case management, pt would qualify for inpti status, status changed 05/20 Slept last night per nursing, no overnight events, no new complaints just wants to go home, chronic pain. Review of Systems: denies headache/fever/chills/nausea/vomiting/chest or abdominal pain/cough/ dyspnea/diarrhea. Otherwise see above. - Constitutional Vitals: Vital Signs Temp Pulse Resp BP Pulse Ox 98.9 F 70 18 180/81 96 05/20/18 06:52 05/20/18 03:05 05/20/18 06:52 05/20/18 06:52 05/20/18 06:52 Period Temp Pulse Resp BP Sys/Dorman Pulse Ox Last 24 Hr 97.5 F-98.9 F 68-76 14-18 138-180/71-88 94-97 Intake and Output 05/19/18 05/20/18 05/20/18 21:59 05:59 13:59 Intake Total 860 / 860 720 / 720 Output Total Balance 856 / 856 717 / 717 Weight 68.039 kg Intake & Output: Intake & Output 05/19/18 05/20/18 05/20/18 21:59 05:59 13:59 Intake Total 860 / 860 720 / 720 Output Total Balance 856 / 856 717 / 717 Weight 68.039 kg Intake: Oral 860 / 860 720 / 720 Output: # of times incontinent of urine Other: Stool Size Large Stool Color Brown Stool Consistency Soft Formed # Bowel Movements 1 Exam: General: Alert, Awake, No acute Distress Eyes/N/T: EOMI Head/Neck: neck supple, CV: RRR, 1/6 SM Pulm: Clear b/l, no wheezing/rhonchi/rales Abd: soft, nontender, +BS x4 Ext: no clubbing/cyanosis/edema Neuro: Alert, no focal deficits, moves all extremities Skin: warm/dry Medical - PN: Obj Da - Labs CBC & Chem 7: 05/20/18 05:12 05/20/18 05:12 Labs: Abnormal Lab Results 05/20/18 05/20/18 05/19/18 05:12 05:12 05:05 WBC 11.8 H Gran # 8.9 H Lymph # (Auto) Sodium 130 L 128 L Potassium 3.1 L Chloride 91 L 91 L BUN 7 L 7 L Creatinine 0.4 L 0.4 L Glucose 108 H 112 H Phosphorus 2.6 L 2.4 L Total Protein 5.8 L 5.6 L Globulin 2.1 L Urine Ketones 05/19/18 05/18/18 05/18/18 05:05 09:26 09:06 WBC Gran # Lymph # (Auto) 1.4 L Sodium 127 L Potassium Chloride 89 L BUN Creatinine 0.5 L Glucose 121 H Phosphorus Total Protein Globulin Urine Ketones 20 A 05/18/18 09:06 WBC Gran # Lymph # (Auto) 1.3 L Sodium Potassium Chloride BUN Creatinine Glucose Phosphorus Total Protein Globulin Urine Ketones Meds: Medications Acetaminophen/Codeine Phosphate (Tylenol #3) 1 tab PO Q6HP PRN PRN Reason: PAIN LEVEL 3-6 Last Admin: 05/19/18 15:55 Dose: 1 tab Albuterol Sulfate (Ventolin) 2.5 mg NEB Q2HP PRN PRN Reason: Shortness Of Breath Bupropion HCl (Wellbutrin Xl) 300 mg PO DAILY [facility] Last Admin: 05/19/18 08:22 Dose: Not Given Celecoxib (Celebrex) 200 mg PO HS [facility] Last Admin: 05/19/18 21:02 Dose: 200 mg Doxepin HCl (Sinequan) 0 mg PO HSP PRN PRN Reason: Insomnia Heparin Sodium (Porcine) (Heparin) 5,000 unit SQ Q12 [facility] Last Admin: 05/19/18 21:02 Dose: Not Given Hydromorphone HCl (Dilaudid) 0.5 mg IV Q2HP PRN PRN Reason: PAIN LEVEL > 6 Potassium Chloride/Dextrose/Sod Cl (Dextrose 5%-Ns W/20meq Kcl) 1,000 mls @ 100 mls/hr IV .Q10H [facility] Last Admin: 05/20/18 06:30 Dose: Not Given Iron Carb/Multivit/[place]/Folic Acid (Multivitamin W/Minerals) 1 tab PO DAILY [facility] Last Admin: 05/19/18 08:22 Dose: Not Given Isosorbide Mononitrate (Imdur) 30 mg PO QAM [facility] Last Admin: 05/20/18 07:03 Dose: 30 mg Naloxone HCl (Narcan) 0.1 mg IV Q2MIN PRN PRN Reason: Opiate Reversal Nitroglycerin (Nitrostat) 0.4 mg SL Q5M PRN PRN Reason: chest pain Ondansetron HCl (Zofran) 4 mg IV Q6HP PRN PRN Reason: Nausea And Vomiting Oxybutynin Chloride (Ditropan Xl) 5 mg PO QDAY [facility] Last Admin: 05/19/18 08:19 Dose: Not Given Senna (Senokot) 2 tab PO HS [facility] Last Admin: 05/19/18 21:02 Dose: 2 tab Sodium Chloride (Saline Flush) 10 ml IV Q8 [facility] Last Admin: 05/20/18 05:27 Dose: 10 ml Thiamine HCl (Vitamin B1) 100 mg PO DAILY [facility] Last Admin: 05/19/18 08:22 Dose: Not Given Vitamin D (Vitamin D3) 5,000 unit PO [facility] Last Admin: 05/19/18 08:19 Dose: Not Given Medical - PN: A/P - Time Spent With Patient Total time spent is greater than 50% in coordination of care (as documented) at patient's floor/unit and/or counseling patient: - Narrative A/P Narrative: A: *Hip/ Back pain: -No e/o acute fracture. Does have old L4 compression fx and DDD of thoracic/ lumbar spine -at baseline it seems she uses a walker/cane *FTT: living by self, poorly kept *Hyponatremia: sodium 128 today, improved, encourage IVF for now ,decreased same. -improving *chronic pain: *Insomina: *Anxiety/Depression *Dementia: *HTN: P: -Celecoxib for now, with oxycodone as needed, kpad -PT/OT -encourage oral intake, on D5NS KCl will decrease -doxepin qhs -cont home bupropion and abilify as per last Psych note -CM for placement to snf on tuesday - -ppx: heparin Medical - PN: Qual - VTE Deep Vein Thrombosis/Pulmonary Embolism Present on Admission: No
[2018-05-20] MEDS: VITAMIN D3 5,000 UNIT CAPSULE PO SCH (08:31)
[2018-05-20] MEDS: buPROPion 150 MG TAB.XL.24H PO SCH (08:32)
[2018-05-20] MEDS: THIAMINE 100 MG TABLET PO SCH (08:32)
[2018-05-20] MEDS: MULTIVIT,THER IRON,CA,FA & MIN 1 TABLET PO SCH (08:32)
[2018-05-20] MEDS: OXYBUTYNIN CHLORIDE 5 MG TAB.XL.24H PO SCH (08:32)
[2018-05-20] MEDS: amLODIPine 5 MG TABLET PO SCH (08:32)
[2018-05-20] MEDS: HEPARIN 5,000 UNIT/ML VIAL SQ SCH ×2 (08:32→20:45)
[2018-05-20] MEDS: ARIPIPRAZOLE 5 MG TABLET PO SCH (08:33)
[2018-05-20] MEDS: SODIUM CHLORIDE 1 GM TABLET PO SCH ×3 (10:48→20:45)
[2018-05-20] MEDS: ACETAMINOPHEN W/CODEINE #3 1 TABLET PO PRN (10:48)
--- NOTE | 2018-05-20 11:03 | Discharge Summary ---
Medical - DS: Prov Patient information: Note initiated : 05/20/18 at 11:01 am Service Date, if different from initiated Date: [] Patient: Jessica Higgins 87 y/o F admitted on 05/18/18 for Fall, Back Pain. Chief Complaint: [] Date of admission: 05/18/18 14:55 Discharge date: 05/22/18 Primary care physician: Swati Randhawa Consults: 05/18/18 12:38 Consult to Physician [CONS] Stat Comment: Consulting Provider: Yessica Betancur Reason For Exam: Physician to Consult Medical - DS: Meds - Discharge Medications Prescriptions: amLODIPine [Norvasc] 5 mg PO DAILY #30 tab Celecoxib [Celebrex] 200 mg PO HS PRN #30 cap PRN Reason: Pain Active and Home Medications: Home Medications cholecalciferol (vitamin D3) 5,000 unit capsule 5,000 unit PO .COMPLEX #4 cap [Rx Confirmed 05/18/18 Last Taken Unknown] tizanidine 4 mg capsule 2 mg PO TID #135 cap 06/04/15 [Rx Confirmed 05/18/18 Last Taken Unknown] citalopram 20 mg tablet 20 mg PO BID 30 Days #60 tab 09/05/15 [Rx Confirmed Last Taken Unknown] ergocalciferol (vitamin D2) 50,000 unit capsule 50,000 unit PO QWEEK #8 cap 05/12 [Rx Confirmed 05/18/18 Last Taken Unknown] oxybutynin chloride ER 5 mg tablet,extended release 24 hr 5 mg PO QDAY #30 tab 09/05/15 [Rx Confirmed 05/18/18 Last Taken Unknown] isosorbide mononitrate ER 30 mg tablet,extended release 24 hr 30 mg PO QAM #90 tab 09/09/15 [Rx Confirmed 05/18/18 Last Taken Unknown] albuterol sulfate HFA 90 mcg/actuation aerosol inhaler 2 puff INHALATION Q6H # 18 g 09/29/15 [Rx Confirmed 05/18/18 Last Taken Unknown] hydrocodone 7.5 mg-ibuprofen 200 mg tablet 1 tab PO QID PRN #90 tab 11/03/15 [ Rx Confirmed 05/18/18 Last Taken Unknown] nitroglycerin 0.4 mg sublingual tablet 0.4 mg SUBLINGUAL Q5M PRN #25 tab [Rx Confirmed 05/18/18 Last Taken Unknown] HYDROcodone/APAP 10/325MG [[place] 10/325Mg] 1 tab PO Q4H PRN #15 tablet 09/06/16 [Rx Confirmed 05/18/18 Last Taken Unknown] Abilify 30 mg PO DAILY 05/18/18 [History Confirmed 05/18/18 Last Taken Unknown] Acetaminophen W/Codeine #3 [Tylenol #3] 1 tab PO Q6HP PRN 05/18/18 [History Confirmed 05/18/18 Last Taken Unknown] Gabapentin 100 mg PO QIDP PRN 05/18/18 [History Confirmed 05/18/18 Last Taken Unknown] buPROPion HCL [Bupropion HCl ER] 300 mg PO DAILY 05/18/18 [History Confirmed Last Taken Unknown] Doxepin [SINEquan] 50 - 100 mg PO HSP PRN 05/19/18 [History Confirmed 05/19/18 Last Taken Unknown] Home Medications cholecalciferol (vitamin D3) 5,000 unit capsule 5,000 unit PO .COMPLEX #4 cap [Rx Confirmed 05/18/18 Last Taken Unknown] tizanidine 4 mg capsule 2 mg PO TID #135 cap 06/04/15 [Rx Confirmed 05/18/18 Last Taken Unknown] citalopram 20 mg tablet 20 mg PO BID 30 Days #60 tab 09/05/15 [Rx Confirmed Last Taken Unknown] ergocalciferol (vitamin D2) 50,000 unit capsule 50,000 unit PO QWEEK #8 cap 05/12 [Rx Confirmed 05/18/18 Last Taken Unknown] oxybutynin chloride ER 5 mg tablet,extended release 24 hr 5 mg PO QDAY #30 tab 09/05/15 [Rx Confirmed 05/18/18 Last Taken Unknown] isosorbide mononitrate ER 30 mg tablet,extended release 24 hr 30 mg PO QAM #90 tab 09/09/15 [Rx Confirmed 05/18/18 Last Taken Unknown] albuterol sulfate HFA 90 mcg/actuation aerosol inhaler 2 puff INHALATION Q6H # 18 g 09/29/15 [Rx Confirmed 05/18/18 Last Taken Unknown] nitroglycerin 0.4 mg sublingual tablet 0.4 mg SUBLINGUAL Q5M PRN #25 tab [Rx Confirmed 05/18/18 Last Taken Unknown] HYDROcodone/APAP 10/325MG [[place] 10-325Mg] 1 tab PO Q4H PRN #15 tablet 09/06/16 [Rx Confirmed 05/18/18 Last Taken Unknown] Abilify 30 mg PO DAILY 05/18/18 [History Confirmed 05/18/18 Last Taken Unknown] Acetaminophen W/Codeine #3 [Tylenol #3] 1 tab PO Q6HP PRN 05/18/18 [History Confirmed 05/18/18 Last Taken Unknown] Gabapentin 100 mg PO QIDP PRN 05/18/18 [History Confirmed 05/18/18 Last Taken Unknown] buPROPion HCL [Bupropion HCl ER] 300 mg PO DAILY 05/18/18 [History Confirmed Last Taken Unknown] Doxepin [Sinequan] 50 - 100 mg PO HSP PRN 05/19/18 [History Confirmed 05/19/18 Last Taken Unknown] Celecoxib [Celebrex] 200 mg PO HS PRN #30 cap 05/20/18 [Rx Last Taken Unknown] Carbidopa-Levodopa 25-100 Tab 25 - 100 mg PO TID 05/21/18 [History Confirmed Last Taken Unknown] amLODIPine [Norvasc] 5 mg PO DAILY #30 tab 05/22/18 [Rx Last Taken Unknown] Medical - DS: Hosp Hospital course: Ms. Higgins is a 87 year old F with h/o anxiety, chronic pain, presens to the ER today after being brought by EMS for evaluation of fall. The patient is a very poor history provider, and we are unable to get a clear picture of why she is present to the emergency room. On speaking with her she says she had fallen down but the timeline she gives is many years ago. She notes she has had constant pain and the pain was getting worse over the period of time and that is what she came in. On reviewing the notes in triage it seems that the patient fell down early this morning slipped down on her buttocks and called EMS to bring her in. The patient has pain in the lower back and the right side of the hip. The patient denies any head injury, changes in vision difficulty in swallowing she has chronic hearing loss, she has chronic dizziness. There is a questionable diagnosis of Parkinson's disease which cannot be verified, the patient notes pain in the lower back in the right hip, predominantly in the right hip region. She denies any nausea vomiting she is incontinent to urine and her diaper is full during my exam. Patient denies any chest pain cough or shortness of breath. She denies any fever chills. Denies any new joint pain any skin rash. Does have anxiety. In the emergency room on presentation patient was afebrile with a temperature of 97, heart rate 78 blood pressure 147 x 93 saturating 93% on room air. Labs showed a WBC count of 6.9 hemoglobin 13.6, lactic acid 0.9 sodium 127 potassium 4.0 chloride 89 bicarbonate 27 creatinine 0.5 urinalysis is negative. Lumbar x- ray shows old L4 compression fracture and degenerative joint disease of the spine. Pelvis x-rays is negative for any acute fractures. The patient was unable to walk in the ER. She did noted that she had significant pain. Despite getting Toradol the patient did not walk. She did not eat much and had spell of urine in her indicating that she probably has been incontinent. The patient is being admitted to observation for further management at this time , will review with case management tomorrow to see if she meets inpt criteria 05/19 Pt seen examined, no acute overnight issues pt has been non compliant with IVF, medications since yesterday poor memory, has tangential thought process she is agreeable for placement if needed reviewed with case management, pt would qualify for inpti status, status changed 05/20 Slept last night per nursing, no overnight events, no new complaints just wants to go home, chronic pain. 05/21 refusing medications resulting in elevated blood pressure. Uncooperative at times. She states she slept poorly because of hot flashes. States her stomach is little queasy this morning. But no other complaints. 05/22 Continues to refuse multiple medications and uncooperative at times. Otherwise stable no other new complaints. Stable for discharge Discharge diagnosis: Acute on chronic pain hip and back, osteoarthritis, failure to thrive, Secondary discharge diagnosis: Hyponatremia insomnia anxiety depression dementia hypertension - Time Spent with Patient Total time spent providing and/or coordinating discharge services: Greater than 30 minutes Medical - DS: Exam - Constitutional Vitals: Vital Signs Temp Pulse Resp BP Pulse Ox 05/20/18 08:29 75 105/55 05/20/18 06:52 98.9 F 18 180/81 96 05/20/18 03:05 97.5 F 70 16 160/76 95 05/19/18 23:35 97.6 F 76 16 168/88 95 05/19/18 20:00 97.5 F 68 18 138/71 97 05/19/18 16:00 97.9 F 16 162/75 94 05/19/18 12:00 97.8 F 14 161/86 95 Intake and Output 05/19/18 05/20/18 05/20/18 21:59 05:59 13:59 Intake Total 860 / 860 720 / 720 Output Total Balance 856 / 856 717 / 717 Intake: Oral 860 / 860 720 / 720 Output: # of times incontinent of urine Other: Stool Size Large Stool Color Brown Stool Consistency Soft Formed # Bowel Movements 1 Weight 68.039 kg Medical - DS: Data Labs on day of discharge: Labs from last 24 hours 05/20/18 05/20/18 05:12 05:12 WBC 11.8 H RBC 4.36 Hgb 13.3 Hct 39.8 MCV 91.3 MCH 30.4 MCHC 33.3 RDW 13.7 Plt Count 297 MPV 7.9 Gran % 75.4 Lymph % (Auto) 16.7 [place] % (Auto) 7.1 Eos % (Auto) 0.6 Baso % (Auto) 0.2 Gran # 8.9 H Lymph # (Auto) 2.0 [place] # (Auto) 0.8 Eos # (Auto) 0.1 Baso # (Auto) 0 Sodium 130 L Potassium 3.4 Chloride 91 L Carbon Dioxide 26 Anion Gap 13.0 BUN 7 L Creatinine 0.4 L GFR Calculation 95 Glucose 108 H Uric Acid 2.5 Calcium 9.0 Phosphorus 2.6 L Magnesium 1.9 Total Bilirubin 0.4 Direct Bilirubin < 0.2 GGT 19 AST 15 ALT 13 Alkaline Phosphatase 61 Lactate Dehydrogenase 214 Total Protein 5.8 L Albumin 3.5 Globulin 2.3 Albumin/Globulin Ratio 1.5 Triglycerides 98 Medical - DS: A/P - Patient/Caregiver Discharge Instructions Activity: as per physical therapy Diet: Regular Diet Prescriptions: Celecoxib [Celebrex] 200 mg PO HS PRN #30 cap PRN Reason: Pain - Follow up Plan Follow up with: Swati Randhawa ARNP [Primary Care Provider] - Disposition: Xfer SNF Prognosis: Fair Rehab Potential: Fair I certify that the patient requires SNF services: Yes Overall status at discharge: patient is back to baseline Medical - DS: Qual - VTE Deep Vein Thrombosis/Pulmonary Embolism Present on Admission: No
[2018-05-20] MEDS: CELECOXIB 200 MG CAPSULE PO SCH (20:53)
[2018-05-20] MEDS ORDERED: diphenhydrAMINE 25 MG CAPSULE PO PRN (21:00)
[2018-05-20] MEDS: SENNOSIDES 1 TABLET PO SCH (21:17)
[2018-05-21] MEDS: cloNIDine HCL 0.1 MG TABLET PO PRN (05:21)
[2018-05-21] MEDS: 0.9 % SODIUM CHLORIDE 10 ML SYRINGE IV SCH ×3 (05:28→21:54)
--- NOTE | 2018-05-21 05:55 | Internal Med Progress Note ---
Medical - PN: Subj Patient information: Note initiated : 05/21/18 at 5:53 am Service Date, if different from initiated Date: [] Patient: Jessica Higgins a 87 y/o F admitted on 05/18/18 for Fall, Back Pain. Chief Complaint: [] Interval history: Ms. Higgins is a 87 year old F with h/o anxiety, chronic pain, presens to the ER today after being brought by EMS for evaluation of fall. The patient is a very poor history provider, and we are unable to get a clear picture of why she is present to the emergency room. On speaking with her she says she had fallen down but the timeline she gives is many years ago. She notes she has had constant pain and the pain was getting worse over the period of time and that is what she came in. On reviewing the notes in triage it seems that the patient fell down early this morning slipped down on her buttocks and called EMS to bring her in. The patient has pain in the lower back and the right side of the hip. The patient denies any head injury, changes in vision difficulty in swallowing she has chronic hearing loss, she has chronic dizziness. There is a questionable diagnosis of Parkinson's disease which cannot be verified, the patient notes pain in the lower back in the right hip, predominantly in the right hip region. She denies any nausea vomiting she is incontinent to urine and her diaper is full during my exam. Patient denies any chest pain cough or shortness of breath. She denies any fever chills. Denies any new joint pain any skin rash. Does have anxiety. In the emergency room on presentation patient was afebrile with a temperature of 97, heart rate 78 blood pressure 147 x 93 saturating 93% on room air. Labs showed a WBC count of 6.9 hemoglobin 13.6, lactic acid 0.9 sodium 127 potassium 4.0 chloride 89 bicarbonate 27 creatinine 0.5 urinalysis is negative. Lumbar x- ray shows old L4 compression fracture and degenerative joint disease of the spine. Pelvis x-rays is negative for any acute fractures. The patient was unable to walk in the ER. She did noted that she had significant pain. Despite getting Toradol the patient did not walk. She did not eat much and had spell of urine in her indicating that she probably has been incontinent. The patient is being admitted to observation for further management at this time , will review with case management tomorrow to see if she meets inpt criteria 05/19 Pt seen examined, no acute overnight issues pt has been non compliant with IVF, medications since yesterday poor memory, has tangential thought process she is agreeable for placement if needed reviewed with case management, pt would qualify for inpti status, status changed 05/20 Slept last night per nursing, no overnight events, no new complaints just wants to go home, chronic pain. 05/21 refusing medications resulting in elevated blood pressure. Uncooperative at times. She states she slept poorly because of hot flashes. States her stomach is little queasy this morning. But no other complaints. Review of Systems: denies headache/fever/chills/nausea/vomiting/chest or abdominal pain/cough/ dyspnea/diarrhea. Otherwise see above. - Constitutional Vitals: Vital Signs Temp Pulse Resp BP Pulse Ox 97.8 F 73 18 162/79 97 05/21/18 04:00 05/21/18 04:00 05/21/18 04:00 05/21/18 04:00 05/21/18 04:00 Period Temp Pulse Resp BP Sys/Dorman Pulse Ox Last 24 Hr 97.6 F-98.9 F 60-75 16-18 101-192/53-100 95-97 Intake and Output 05/20/18 05/20/18 05/21/18 13:59 21:59 05:59 Intake Total 360 / 360 150 / 150 Output Total 52 52 Balance 351 / 351 98 / 98 Weight 67.358 kg Patient Weight 05/21/18 05:59 Weight 67.358 kg Intake & Output: Intake & Output 05/20/18 05/20/18 05/21/18 13:59 21:59 05:59 Intake Total 360 / 360 150 / 150 Output Total 52 Balance 351 / 351 98 / 98 Weight 67.358 kg Intake: Oral 360 / 360 150 / 150 Output: Void Amount 50 / 50 # of times incontinent of urine 2 Other: Meal Lunch Percent of Meal Consumed 50% Urine Appearance Clear Urine Color Bright Yellow Urine Odor Foul Stool Size Large Stool Color Brown Stool Consistency Soft # of times incontinent of 1 Bowels Exam: General: Awake, No acute Distress Eyes/N/T: EOMI Head/Neck: neck supple, CV: RRR, 1/6 SM Pulm: Clear b/l, no wheezing/rhonchi/rales Abd: soft, nontender, +BS x4 Ext: no clubbing/cyanosis/edema Neuro: Alert, no focal deficits, moves all extremities Skin: warm/dry Medical - PN: Obj Da - Labs CBC & Chem 7: 05/21/18 05:03 05/21/18 05:03 Labs: Abnormal Lab Results 05/20/18 05/20/18 05/19/18 05:12 05:12 05:05 WBC 11.8 H Gran # 8.9 H Lymph # (Auto) Sodium 130 L 128 L Potassium 3.1 L Chloride 91 L 91 L BUN 7 L 7 L Creatinine 0.4 L 0.4 L Glucose 108 H 112 H Phosphorus 2.6 L 2.4 L Total Protein 5.8 L 5.6 L Globulin 2.1 L Urine Ketones 05/19/18 05/18/18 05/18/18 05:05 09:26 09:06 WBC Gran # Lymph # (Auto) 1.4 L Sodium 127 L Potassium Chloride 89 L BUN Creatinine 0.5 L Glucose 121 H Phosphorus Total Protein Globulin Urine Ketones 20 A 05/18/18 09:06 WBC Gran # Lymph # (Auto) 1.3 L Sodium Potassium Chloride BUN Creatinine Glucose Phosphorus Total Protein Globulin Urine Ketones Meds: Medications Acetaminophen/Codeine Phosphate (Tylenol #3) 1 tab PO Q6HP PRN PRN Reason: PAIN LEVEL 3-6 Last Admin: 05/20/18 10:48 Dose: 1 tab Albuterol Sulfate (Ventolin) 2.5 mg NEB Q2HP PRN PRN Reason: Shortness Of Breath Amlodipine Besylate (Norvasc) 5 mg PO DAILY [facility] Last Admin: 05/20/18 08:32 Dose: Not Given Bupropion HCl (Wellbutrin Xl) 300 mg PO DAILY [facility] Last Admin: 05/20/18 08:32 Dose: Not Given Celecoxib (Celebrex) 200 mg PO HS [facility] Last Admin: 05/20/18 20:53 Dose: 200 mg Clonidine HCl (Catapres) 0.1 mg PO QIDP PRN PRN Reason: Hypertension Last Admin: 05/21/18 05:21 Dose: 0.1 mg Diphenhydramine HCl (Benadryl) 25 mg PO HSP PRN PRN Reason: Insomnia Doxepin HCl (Sinequan) 0 mg PO HSP PRN PRN Reason: Insomnia Enalaprilat (Vasotec) 0 mg IV Q6HP PRN PRN Reason: Hypertension Last Admin: 05/20/18 16:47 Dose: 1.25 mg Heparin Sodium (Porcine) (Heparin) 5,000 unit SQ Q12 [facility] Last Admin: 05/20/18 20:45 Dose: Not Given Hydromorphone HCl (Dilaudid) 0.5 mg IV Q2HP PRN PRN Reason: PAIN LEVEL > 6 Potassium Chloride/Dextrose/Sod Cl (Dextrose 5%-Ns W/20meq Kcl) 1,000 mls @ 25 mls/hr IV .Q24H [facility] Last Admin: 05/20/18 08:31 Dose: Not Given Iron Carb/Multivit/[place]/Folic Acid (Multivitamin W/Minerals) 1 tab PO DAILY [facility] Last Admin: 05/20/18 08:32 Dose: Not Given Isosorbide Mononitrate (Imdur) 30 mg PO QAM [facility] Last Admin: 05/20/18 07:03 Dose: 30 mg Naloxone HCl (Narcan) 0.1 mg IV Q2MIN PRN PRN Reason: Opiate Reversal Nitroglycerin (Nitrostat) 0.4 mg SL Q5M PRN PRN Reason: chest pain Ondansetron HCl (Zofran) 4 mg IV Q6HP PRN PRN Reason: Nausea And Vomiting Oxybutynin Chloride (Ditropan Xl) 5 mg PO QDAY [facility] Last Admin: 05/20/18 08:32 Dose: Not Given Senna (Senokot) 2 tab PO HS [facility] Last Admin: 05/20/18 21:17 Dose: Not Given Sodium Chloride (Saline Flush) 10 ml IV Q8 [facility] Last Admin: 05/21/18 05:28 Dose: 10 ml Thiamine HCl (Vitamin B1) 100 mg PO DAILY [facility] Last Admin: 05/20/18 08:32 Dose: Not Given Vitamin [facility] ([facility]) [facility] Admin: 05/20/18 08:31 Dose: Not Given Medical - PN: A/P - Time Spent With Patient Total time spent is greater than 50% in coordination of care (as documented) at patient's floor/unit and/or counseling patient: - Narrative A/P Narrative: A: *Hip/ Back pain: -No e/o acute fracture. Does have old L4 compression fx and DDD of thoracic/ lumbar spine -at baseline it seems she uses a walker/cane *FTT: living by self, poorly kept *Hyponatremia: improved, encourage IVF for now *chronic pain: *Insomnia: *Anxiety/Depression *Dementia: uncooperative at times *HTN: no home BP meds noted P: -Celecoxib for now, with oxycodone as needed, kpad -PT/OT -encourage oral intake, d/c IVFs -doxepin qhs -cont home bupropion and abilify as per last Psych note -CM for placement to snf on tuesday -started norvasc but pt refusing -ppx: heparin Medical - PN: Qual - VTE Deep Vein Thrombosis/Pulmonary Embolism Present on Admission: No
[2018-05-21 06:30] LABS: Basophils # (Auto) 0 K/mcL (0.0-0.3); Basophils % (Auto) 0.4 % (0.0-2.0); Eosinophils # (Auto) 0.1 K/mcL (0.0-0.7); Eosinophils % (Auto) 0.5 % (0.0-7.0); Granulocytes % (Auto) 71.7 % (38.0-78.0); Lymphocytes # (Auto) 2.1 K/mcL (1.5-4.8); Lymphocytes % (Auto) 17.6 % (15.5-49.0); Mean Cell Volume 90.6 fL (80.0-100.0); Mean Corpuscular HGB Conc 33.5 g/dL (31.0-36.0); Mean Corpuscular Hemoglobin 30.4 pg (26.0-34.0); Monocytes # (Auto) 1.2 K/mcL (0.1-0.9); Monocytes % (Auto) 9.8 % (1.0-12.0); Platelet Count 301 K/mcL (140-440); RBC 4.29 M/mcL (4.00-5.20); Red Cell Distribution Width 13.3 % (11.5-14.5)
[2018-05-21 06:53] LABS: ALT/SGPT 12 U/l (0-40); Albumin 3.6 gm/dL (3.2-5.2); Albumin/Globulin Ratio 1.7 (1.0-2.3); Alkaline Phosphatase 60 U/L (39-117); Bilirubin,Direct < 0.2 mg/dL (0.0-0.3); Blood Urea Nitrogen 10 mg/dl (8-23); Gamma Glutamyl Transpeptidase 17 U/L (5-36); Uric Acid 3.1 mg/dL (2.5-8.0)
[2018-05-21 09:04] LABS: Eosinophils % (Manual) 1 % (0-7); Lymphocytes % 32 % (15-49); Monocytes % (Manual) 4 % (1-12); Platelet Estimate NORMAL (NORMAL); RBC Morphology NORMAL (NORMAL); Segmented Neutrophils % 59 % (38-78)
[2018-05-21] MEDS: amLODIPine 5 MG TABLET PO SCH (09:56)
[2018-05-21] MEDS: ISOSORBIDE MONONITRATE 30 MG TAB.XL.24H PO SCH (09:56)
[2018-05-21] MEDS: VITAMIN D3 5,000 UNIT CAPSULE PO SCH (10:02)
[2018-05-21] MEDS: buPROPion 150 MG TAB.XL.24H PO SCH (10:02)
[2018-05-21] MEDS: OXYBUTYNIN CHLORIDE 5 MG TAB.XL.24H PO SCH (10:02)
[2018-05-21] MEDS: ARIPIPRAZOLE 5 MG TABLET PO SCH (10:02)
[2018-05-21] MEDS: HEPARIN 5,000 UNIT/ML VIAL SQ SCH ×2 (10:02→21:50)
[2018-05-21] MEDS: THIAMINE 100 MG TABLET PO SCH (10:02)
[2018-05-21] MEDS: MULTIVIT,THER IRON,CA,FA & MIN 1 TABLET PO SCH (10:02)
[2018-05-21] MEDS: ACETAMINOPHEN W/CODEINE #3 1 TABLET PO PRN (13:54)
[2018-05-21] MEDS ORDERED: CARBIDOPA/LEVODOPA 25/100 TABLET PO ONE (16:00)
[2018-05-21] MEDS: SENNOSIDES 1 TABLET PO SCH (21:50)
[2018-05-21] MEDS: CARBIDOPA/LEVODOPA 25/100 TABLET PO SCH (21:50)
[2018-05-21] MEDS: CELECOXIB 200 MG CAPSULE PO SCH (21:50)
[2018-05-22] MEDS: cloNIDine HCL 0.1 MG TABLET PO PRN (01:24)
[2018-05-22] MEDS: ACETAMINOPHEN W/CODEINE #3 1 TABLET PO PRN ×2 (03:15→12:23)
[2018-05-22] MEDS: 0.9 % SODIUM CHLORIDE 10 ML SYRINGE IV SCH ×3 (03:22→13:45)
[2018-05-22] MEDS: OXYBUTYNIN CHLORIDE 5 MG TAB.XL.24H PO SCH (09:57)
[2018-05-22] MEDS: ISOSORBIDE MONONITRATE 30 MG TAB.XL.24H PO SCH (09:57)
[2018-05-22] MEDS: HEPARIN 5,000 UNIT/ML VIAL SQ SCH (09:57)
[2018-05-22] MEDS: VITAMIN D3 5,000 UNIT CAPSULE PO SCH (09:57)
[2018-05-22] MEDS: ARIPIPRAZOLE 5 MG TABLET PO SCH (09:57)
[2018-05-22] MEDS: MULTIVIT,THER IRON,CA,FA & MIN 1 TABLET PO SCH (09:58)
[2018-05-22] MEDS: amLODIPine 5 MG TABLET PO SCH (09:58)
[2018-05-22] MEDS: buPROPion 150 MG TAB.XL.24H PO SCH (09:58)
[2018-05-22] MEDS: CARBIDOPA/LEVODOPA 25/100 TABLET PO SCH (09:58)
[2018-05-22] MEDS: THIAMINE 100 MG TABLET PO SCH (09:58)
== END 2018-05-22 13:42 | DRG 556 ==
LOC: ED 08:07 → OBSVTOIN 14:55 → INTOOBSV 14:55 → MEDSUR 14:55
PROVIDERS: ADMIT Internal Medicine; ATTEND Internal Medicine
CPT/HCPCS: 97161; 97167; 99231; J1170; J1885; J7030

== ENCOUNTER 2018-05-25 12:26 | Inpatient (IN) ==
[2018-05-25] MEDS ORDERED: NALOXONE HCL 0.4 MG/ML VIAL IV ONE ×2 (12:45→12:55)
--- NOTE | 2018-05-25 13:04 | Emergency Department Note ---
Altered Mental Status HPI - General Chief Complaint: Altered Mental Status Stated Complaint: altered LOC Time Seen by Provider: 05/25/18 12:55 Source: EMS Mode of arrival: EMS Limitations: altered mental status - History of Present Illness HPI Narrative: 87-year-old female brought in via EMS from [facility]. RN advised EMS patient had altered mental status. Last known normal was approximately 9 AM. Patient took hydrocodone 10 at 8:15 this morning but normally does not have decreased LOC. Granddaughter is room and advises patient has been taking regular medication regimen for 2 days. Patient does have history of low sodium and has a low salt diet and does not add salt her food. Patient states yesterday patient was in good spirits but did notice she was becoming increasingly tired more so toward the end of the day. EMS stated they did give 2 mg of Narcan and they felt she did respond to the medication. Patient did arrive sleeping and responsive to painful stimuli. Patient does take last night Abilify, and this am at 0815 amlodipine, bupropion, carbidopa- levodopa, hydrocodone 10, isosorbide mononitrate, albuterol inhaler, Tizanidine. complaint: altered mental status Onset (ago): hour(s) (4) Timing confirmed by: caregiver Severity: moderate Consistency of Symptoms: constant Context: change in medication (pt has been taking medications consitantly for 2 days.) Associated symptoms: Reports: denies other symptoms Treatments prior to arrival: other (2mg Narcan) - Related Data Home Medications Medication Instructions Recorded Confirmed Abilify 30 mg PO DAILY 05/18/18 05/25/18 buPROPion HCL [Bupropion HCl ER] 300 mg PO DAILY 05/18/18 05/25/18 Doxepin [Sinequan] 50 - 100 mg PO HSP PRN 05/19/18 05/25/18 Carbidopa-Levodopa 25-100 Tab 25 - 100 mg PO TID 05/21/18 05/25/18 HYDROcodone/APAP 10/325MG 1 tablet PO Q4 PRN 05/25/18 05/25/18 Previous Rx's Medication Instructions Recorded cholecalciferol (vitamin D3) 5,000 5,000 unit PO .COMPLEX #4 cap 04/09/15 unit capsule tizanidine 4 mg capsule 2 mg PO TID #135 cap 06/04/15 citalopram 20 mg tablet 20 mg PO BID 30 Days #60 tab 09/05/15 ergocalciferol (vitamin D2) 50,000 50,000 unit PO QWEEK #8 cap 09/05/15 unit capsule oxybutynin chloride ER 5 mg 5 mg PO QDAY #30 tab 09/05/15 tablet,extended release 24 hr isosorbide mononitrate ER 30 mg 30 mg PO QAM #90 tab 09/09/15 tablet,extended release 24 hr albuterol sulfate HFA 90 2 puff INHALATION Q6H #18 g 09/29/15 mcg/actuation aerosol inhaler nitroglycerin 0.4 mg sublingual 0.4 mg SUBLINGUAL Q5M PRN #25 tab 01/07/16 tablet Celecoxib [Celebrex] 200 mg PO HS PRN #30 cap 05/20/18 HYDROcodone/APAP 10/325MG [Clay 1 tab PO Q4H PRN #15 tab 05/22/18 10-325Mg] amLODIPine [Norvasc] 5 mg PO DAILY #30 tab 05/22/18 Allergies Allergy/AdvReac Type Severity Reaction Status Date / Time gabapentin Allergy Intermediate Hallucinati Verified 05/19/18 10:18 ng Oxycodone Allergy Mild Hallucinati Verified 05/19/18 10:18 ng Review of Systems Review of Systems: Patient unresponsive and unable to answer any questions. Past Medical History - Past Medical History Medical history: Reports: asthma, COPD, hyperlipidemia, hypertension, osteoporosis, other (parkinson's) Psychiatric history: Reports: depression Surgical history ED: Reports: cataract, herniorrhaphy, hip replacement, tonsillectomy, vascular surgery, other (ear) - Social History smoking status: Current every day smoker Alcohol use: Reports: None Drug use: Reports: none Physical Exam Limitations: altered mental status General appearance: in no apparent distress, lethargic Head: atraumatic, normocephalic, normal inspection Eye: Present: normal appearance, PERRL. Absent: conjunctival injection ENT: normal exam, normal oropharynx, mucous membranes dry, TM's normal bilaterally, normal external ear exam Neck: Present: normal inspection. Absent: tenderness, lymphadenopathy Chest: Present: normal inspection, symmetric chest wall rise. Absent: tenderness Respiratory: Present: normal lung sounds bilaterally. Absent: respiratory distress, rales/crackles, wheezes Cardiovascular: Present: regular rate, normal rhythm. Absent: systolic murmur, diastolic murmur Abdominal: Present: soft, normal bowel sounds. Absent: distention, tenderness, guarding, rebound, rigidity Extremities: Present: normal inspection. Absent: pedal edema Back: Present: normal inspection. Absent: tenderness Neurological: Present: alert. Absent: oriented X3, normal gait Psychiatric: Absent: normal affect, normal mood Skin: Present: warm, dry, intact, pallor. Absent: cyanosis, diaphoresis, erythema Course Vital Signs Temperature 97.7 F 05/25/18 12:28 Pulse Rate 73 05/25/18 12:28 Respiratory Rate 20 05/25/18 12:28 Blood Pressure 126/56 05/25/18 12:28 Pulse Oximetry (%) 95 05/25/18 12:28 Temperature 97.6 F 05/25/18 16:30 Pulse Rate 65 05/25/18 16:30 Respiratory Rate 18 05/25/18 16:30 Blood Pressure 152/65 05/25/18 16:30 Pulse Oximetry (%) 93 05/25/18 16:30 Altered Mental Status - MDM Narrative Medical decision making narrative: Administered 0.4mg Narcan with no changes, administered another 1.6mg narcan without any changes. Lab POC returned with NA-119 started 3% saline at 20ml/hr via IV pump at 1353. Pt also with elevated WBC 13.[address] Pizano who accepted pt into telemetry. - Lab Data Lab results reviewed: Yes I reviewed the patient's lab results. Result diagrams: 05/25/18 13:10 05/25/18 16:40 Lab Results 05/25/18 05/25/18 05/25/18 Range/Units 13:01 13:10 14:00 WBC 13.3 H (4.5-11.0) K/mcL RBC 4.12 (4.00-5.20) M/mcL Hgb 12.3 (12.0-15.0) g/dL Hct 37.3 (36.0-48.0) % POC Hct 37.0 (36.0-48.0) % MCV 90.4 (80.0-100.0) fL MCH 29.9 (26.0-34.0) pg MCHC 33.1 (31.0-36.0) g/dL RDW 13.3 (11.5-14.5) % Plt Count 295 (140-440) K/mcL MPV 7.3 L (7.4-10.4) fL Gran % 82.3 H (38.0-78.0) % Lymph % (Auto) 8.1 L (15.5-49.0) % [place] % (Auto) 9.1 (1.0-12.0) % Eos % (Auto) 0.3 (0.0-7.0) % Baso % (Auto) 0.2 (0.0-2.0) % Gran # 10.9 H (1.8-8.0) K/mcL Lymph # (Auto) 1.1 L (1.5-4.8) K/mcL [place] # (Auto) 1.2 H (0.1-0.9) K/mcL Eos # (Auto) 0 (0.0-0.7) K/mcL Baso # (Auto) 0 (0.0-0.3) K/mcL POC Sodium 119 L (133-145) mmol/L Sodium 117 L* (133-145) mmol/L POC Potassium 3.9 (3.3-5.1) mmol/L Potassium 4.1 (3.3-5.1) mmol/L POC Chloride 81 L (96-108) mmol/L Chloride 78 L (96-108) mmol/L Carbon Dioxide 25 (22-30) mmol/L POC Total CO2 29 (22-30) mmol/L Anion Gap 14.0 (8-16) POC BUN 16 (8-23) mg/dl BUN 14 (8-23) mg/dl Creatinine 0.7 (0.6-1.1) mg/dl POC Creatinine 0.7 (0.6-1.1) mg/dl GFR Calculation 79 Glucose 121 H (70-105) mg/dL POC Glucose 124 H (70-105) mg/dL Calcium 9.0 (8.6-10.4) mg/dl POC WB Ioniz Calcium 1.13 L (1.16-1.32) mmol/L Total Bilirubin 0.6 (0.0-1.0) mg/dL AST 16 (0-37) U/l ALT < 5 (0-40) U/l Alkaline Phosphatase 65 (39-117) U/L Total Protein 5.8 L (5.9-8.4) gm/dL Albumin 3.6 (3.2-5.2) gm/dL Globulin 2.2 (2.2-3.7) gm/dL Albumin/Globulin Ratio 1.6 (1.0-2.3) Urine Color Gema Urine Appearance Cloudy Urine pH 6.0 (5.0-9.0) Ur Specific [place] 1.012 (1.000-1.035) Urine Protein 30 A (NEG) mg/dL Urine Glucose (UA) Negative (NEG) mg/dL Urine Ketones Neg (NEG) mg/dL Urine Occult Blood 0.2 A (<0.03) mg/dL Urine Nitrate Neg (NEG) Urine Bilirubin Neg (NEG) mg/dL Urine Urobilinogen Neg (NEG) mg/dL Ur Leukocyte Esterase 500 A (NEG) /uL Urine RBC 3 H (0-1) /hpf Urine WBC > 182 H (0-4) /hpf Ur Squamous Epith Cells 0 (0-4) /hpf Urine Bacteria 0 (0) /hpf Hyaline Casts 4 H (0-2) /lpf Urine Mucus Mod (0) /hpf Ur Culture Indicated? Yes Urine Osmolality (80-1000) mOsm/kg Ur Random Creatinine mg/dl Ur Random Sodium mmol/L 05/25/18 05/25/18 Range/Units 14:00 14:00 WBC (4.5-11.0) K/mcL RBC (4.00-5.20) M/mcL Hgb (12.0-15.0) g/dL Hct (36.0-48.0) % POC Hct (36.0-48.0) % MCV (80.0-100.0) fL MCH (26.0-34.0) pg MCHC (31.0-36.0) g/dL RDW (11.5-14.5) % Plt Count (140-440) K/mcL MPV (7.4-10.4) fL Gran % (38.0-78.0) % Lymph % (Auto) (15.5-49.0) % [place] % (Auto) (1.0-12.0) % Eos % (Auto) (0.0-7.0) % Baso % (Auto) (0.0-2.0) % Gran # (1.8-8.0) K/mcL Lymph # (Auto) (1.5-4.8) K/mcL [place] # (Auto) (0.1-0.9) K/mcL Eos # (Auto) (0.0-0.7) K/mcL Baso # (Auto) (0.0-0.3) K/mcL POC Sodium (133-145) mmol/L Sodium (133-145) mmol/L POC Potassium (3.3-5.1) mmol/L Potassium (3.3-5.1) mmol/L POC Chloride (96-108) mmol/L Chloride (96-108) mmol/L Carbon Dioxide (22-30) mmol/L POC Total CO2 (22-30) mmol/L Anion Gap (8-16) POC BUN (8-23) mg/dl BUN (8-23) mg/dl Creatinine (0.6-1.1) mg/dl POC Creatinine (0.6-1.1) mg/dl GFR Calculation Glucose (70-105) mg/dL POC Glucose (70-105) mg/dL Calcium (8.6-10.4) mg/dl POC WB Ioniz Calcium (1.16-1.32) mmol/L Total Bilirubin (0.0-1.0) mg/dL AST (0-37) U/l ALT (0-40) U/l Alkaline Phosphatase (39-117) U/L Total Protein (5.9-8.4) gm/dL Albumin (3.2-5.2) gm/dL Globulin (2.2-3.7) gm/dL Albumin/Globulin Ratio (1.0-2.3) Urine Color Urine Appearance Urine pH (5.0-9.0) Ur Specific [place] (1.000-1.035) Urine Protein (NEG) mg/dL Urine Glucose (UA) (NEG) mg/dL Urine Ketones (NEG) mg/dL Urine Occult Blood (<0.03) mg/dL Urine Nitrate (NEG) Urine Bilirubin (NEG) mg/dL Urine Urobilinogen (NEG) mg/dL Ur Leukocyte Esterase (NEG) /uL Urine RBC (0-1) /hpf Urine WBC (0-4) /hpf Ur Squamous Epith Cells (0-4) /hpf Urine Bacteria (0) /hpf Hyaline Casts (0-2) /lpf Urine Mucus (0) /hpf Ur Culture Indicated? Urine Osmolality 338 (80-1000) mOsm/kg Ur Random Creatinine 65.8 mg/dl Ur Random Sodium 69 mmol/L - EKG Data EKG attestation: Yes I reviewed and interpreted this EKG. EKG shows normal: sinus rhythm Disposition Pt seen by TOILET AND LAUNDRY SOAP SUPERVISOR/PA only: No (Scrap Preparation Supervisor) Clinical Impression: Hyponatremia Disposition: Xfer As Inpt ([facility]) Condition: Good Time of Disposition: 19:30
--- NOTE | 2018-05-25 13:30 | XRay Report ---
CLINICAL INFORMATION: altered LOC COMPARISON: 08/31/2016 FINDINGS: Moderate cardiomegaly is unchanged. Mediastinum and pulmonary vessels are normal. There is minor bibasilar scarring or atelectasis. No effusions. Old right-sided rib fractures seen - as before. IMPRESSION: Moderate stable cardiomegaly - no acute disease Interpreted and Authenticated by: Oscar Mclean 05/25/18
[2018-05-25 13:43] LABS: Basophils # (Auto) 0 K/mcL (0.0-0.3); Basophils % (Auto) 0.2 % (0.0-2.0); Eosinophils # (Auto) 0 K/mcL (0.0-0.7); Eosinophils % (Auto) 0.3 % (0.0-7.0); Granulocytes % (Auto) 82.3 % (38.0-78.0); Lymphocytes # (Auto) 1.1 K/mcL (1.5-4.8); Lymphocytes % (Auto) 8.1 % (15.5-49.0); Mean Cell Volume 90.4 fL (80.0-100.0); Mean Corpuscular HGB Conc 33.1 g/dL (31.0-36.0); Mean Corpuscular Hemoglobin 29.9 pg (26.0-34.0); Monocytes # (Auto) 1.2 K/mcL (0.1-0.9); Monocytes % (Auto) 9.1 % (1.0-12.0); Platelet Count 295 K/mcL (140-440); RBC 4.12 M/mcL (4.00-5.20); Red Cell Distribution Width 13.3 % (11.5-14.5)
[2018-05-25] MEDS ORDERED: SODIUM CHLORIDE 3 % 500 ML IV SCH (13:45)
[2018-05-25 14:09] LABS: ALT/SGPT < 5 U/l (0-40); Albumin 3.6 gm/dL (3.2-5.2); Albumin/Globulin Ratio 1.6 (1.0-2.3); Alkaline Phosphatase 65 U/L (39-117); Blood Urea Nitrogen 14 mg/dl (8-23)
--- NOTE | 2018-05-25 15:04 | Internal Med History&Physical ---
Medical - H&P: HPI Patient information: Note initiated : 05/25/18 at 3:04 pm Service Date, if different from initiated Date: [] Patient: Jessica Higgins a 87 y/o F admitted on for altered LOC. Chief Complaint: Altered level of consciousness History of present illness: Ms. Higgins is a 87 year old F with a history of hypertension, hypercholesterolemia, recently diagnosed Parkinson's disease, mild chronic hyponatremia who is brought to the emergency department after decreased level of consciousness at her living facility. History is obtained in speaking with Dr. Wood, the patient's friend/neighbor who provides further history as well as reviewing records from the facility. The patient is unable to provide much history at all. The patient was admitted to this facility on due to weakness. She had mild hyponatremia the sodium 127 at that time. She is treated with fluids and her sodium was 130 at discharge. She also was started on antihypertensives , which was resistant to take at first. Apparently she is distrustful of new medications after having a reaction to gabapentin causing hallucinations and "fuzzy thinking". She was discharged this past Tuesday. She had started to work with physical therapy and had a good day yesterday. Apparently this morning at 08 100 she was awake and alert but was not responsive at 10 AM. EMS was summoned, she received Narcan with a possible response. She was still minimally interactive in the ED, received further Narcan without further effect. Evaluation in the emergency department revealed serum sodium of 117. She was started on 3% saline and I was contacted for admission. After I saw the patient, I ordered CT of the head, which showed old cerebrovascular disease, possible acute left MCA infarct. Subsequent MRI has ruled out acute infarct. She is hospitalized for treatment of her altered level of consciousness and hyponatremia. ROS unobtainable: due to mental status Medical - H&P: PM Medical history: Mild hyponatremia Early onset Parkinson's Anxiety/depression Prediabetes (Chronic) Osteoporosis (Chronic) Osteoarthritis (Chronic) Menopausal syndrome (Chronic) Hypertension, essential (Chronic) Hyperlipidemia (Chronic) History of colonic polyps (Chronic) Chronic obstructive pulmonary disease (Chronic) Compression fracture (Acute) Ribs, multiple fractures (Acute) Hematoma (Acute) Vitamin D deficiency (Chronic) Stricture and stenosis of esophagus (Chronic) Surgical history: History of adenoidectomy (Resolved) History of arthroplasty of left hip (Resolved) History of cataract surgery (Resolved) History of ear surgery (Resolved) History of tonsillectomy (Resolved) History of umbilical hernia repair (Resolved) History of varicose vein stripping (Resolved) Pertinent family history: Unable to obtain family history due to patient's mental status Social history: Patient had been at home, prior to her previous hospitalization. group home facility. She apparently does not smoke or drink alcohol, though is unable to give history. Medical - H&P: Meds Home Medications Medication Instructions Recorded Confirmed Type cholecalciferol (vitamin D3) 5,000 5,000 unit PO .COMPLEX #4 cap 04/09/15 Rx unit capsule tizanidine 4 mg capsule 2 mg PO TID #135 cap 06/04/15 05/25/18 Rx citalopram 20 mg tablet 20 mg PO BID 30 Days #60 tab 09/05/15 05/25/18 Rx ergocalciferol (vitamin D2) 50,000 50,000 unit PO QWEEK #8 cap 09/05/15 Rx unit capsule oxybutynin chloride ER 5 mg 5 mg PO QDAY #30 tab 09/05/15 05/25/18 Rx tablet,extended release 24 hr isosorbide mononitrate ER 30 mg 30 mg PO QAM #90 tab 09/09/15 05/25/18 Rx tablet,extended release 24 hr albuterol sulfate HFA 90 2 puff INHALATION Q6H #18 g 09/29/15 05/25/18 Rx mcg/actuation aerosol inhaler nitroglycerin 0.4 mg sublingual 0.4 mg SUBLINGUAL Q5M PRN #25 tab 01/07/1605/25 Rx tablet Abilify 30 mg PO DAILY 05/18/18 05/25/18 History buPROPion HCL [Bupropion HCl ER] 300 mg PO DAILY 05/18/18 05/25/18 History Doxepin [Sinequan] 50 - 100 mg PO HSP PRN 05/19/18 05/25/18 History Celecoxib [Celebrex] 200 mg PO HS PRN #30 cap 05/20/18 05/25/18 Rx Carbidopa-Levodopa 25-100 Tab 25 - 100 mg PO TID 05/21/18 05/25/18 History HYDROcodone/APAP 10/325MG [[place] 1 tab PO Q4H PRN #15 tab 05/22/18 05/25/18 Rx 10-325Mg] amLODIPine [Norvasc] 5 mg PO DAILY #30 tab 05/22/18 05/25/18 Rx HYDROcodone/APAP 10/325MG 1 tablet PO Q4 PRN 05/25/18 05/25/18 History Allergies Allergy/AdvReac Type Severity Reaction Status Date / Time gabapentin Allergy Intermediate Hallucinati Verified 05/19/18 10:18 ng Oxycodone Allergy Mild Hallucinati Verified 05/19/18 10:18 ng Medical - H&P: Exam - Constitutional Vitals: Temp Pulse Resp BP Pulse Ox 97.7 F 59 L 17 131/60 90 05/25/18 12:28 05/25/18 14:51 05/25/18 14:51 05/25/18 14:46 05/25/18 14:51 Exam: GENERAL: Somnolent, opens eyes to voice at times, answers yes or no questions at times. Appears stated age. HEENT: Atraumatic. PERRL at 3 mm, conjunctiva clear, no scleral icterus. Hearing grossly intact, responds to voice at times. Oropharynx exam limited, however acus membranes appear moist, no obvious lip or gum lesions. Tongue appears midline. NECK: Supple without meningismus, no thyromegaly RESPIRATORY: Breath sounds clear bilaterally without wheezes or rhonchi. Respirations are shallow and effort is unlabored. CARDIOVASCULAR: Regular rate and rhythm, 2/6 systolic murmur along left sternal border, no gallop or rub. No peripheral edema. Carotid pulses 2+ without bruit. GI: Abdomen soft, no apparent tenderness, no involuntary guarding. Bowel sounds are present. No hepatosplenomegaly. LYMPHATIC: No cervical or supraclavicular lymphadenopathy MUSCULOSKELETAL: No joint erythema or swelling. SKIN: Warm, dry. No lesions. Skin turgor decreased. NEUROLOGIC: Cranial nerves II through XII grossly intact as can best be tested. Muscle mass normal for age. Strength cannot be fully tested due to cooperation, though moves extremities. Deep tendon reflexes trace at the biceps and patella. PSYCHIATRIC: Somnolent, cannot assess orientation, mood or affect. Medical - H&P: Reslt - Labs CBC & Chem 7: 05/25/18 13:10 05/25/18 18:45 Labs: Short CBC 05/25/18 Range/Units 13:10 WBC 13.3 H (4.5-11.0) K/mcL Hgb 12.3 (12.0-15.0) g/dL Hct 37.3 (36.0-48.0) % Plt Count 295 (140-440) K/mcL BMP 05/25/18 13:01 Sodium 117 L* Potassium 4.1 Chloride 78 L Carbon Dioxide 25 BUN 14 Creatinine 0.7 Glucose 121 H Calcium 9.0 Liver Function 05/25/18 Range/Units 13:01 Total Bilirubin 0.6 (0.0-1.0) mg/dL AST 16 (0-37) U/l ALT < 5 (0-40) U/l Alkaline Phosphatase 65 (39-117) U/L Albumin 3.6 (3.2-5.2) gm/dL - EKG Data -: EKG Reviewed by Myself EKG shows normal: sinus rhythm (rate 62), ST-T waves - Imaging and Cardiology CT scan - head Status: image reviewed by me Additional comments: IMPRESSION: 1. Moderate atrophy and chronic ischemic changes in deep cerebral white matter. 2. 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 Moderate remote focal infarct of the left caudate nucleus and anterior limb of the left internal capsule was seen on previous study. 3. There is no interval hemorrhage; however, there are equivocal secondary sign suggestive, but not diagnostic, of an acute nonhemorrhagic left MCA infarct. MRI - head Status: image reviewed by me Additional comments: IMPRESSION: Moderate atrophy with patchy chronic ischemic changes in the deep cerebral white matter and remote lacunar infarcts in the basal ganglia. There is no acute infarct or hemorrhage. Chest x-ray Additional comments: IMPRESSION: Moderate stable cardiomegaly - no acute disease Medical - H&P: A/P (1) Encephalopathy Current visit: Yes Status: Acute (2) Hyponatremia Current visit: Yes Status: Acute (3) Hypertension, essential Current visit: No Status: Chronic - Narrative A/P Narrative: 87-year-old female presenting with altered level of consciousness. Unclear time course, though history obtained from the facility said she was interacting and taking her medications at 8:00 on the morning of presentation. Subsequently about 10 AM she was not responsive. Encephalopathy. Suspected source is hyponatremia. Patient has chronic hyponatremia, sodium was 130 on Tuesday at the time of discharge, now 117 at presentation. There is also evidence of urinary tract infection, which may be also causing changes in mental status. No evidence of seizure activity noted prior to change in mental status. Concern for possible acute stroke after initial CT, though not confirmed on MRI. She is on tizanidine, which could be causing encephalopathy, though that is a chronic medication, and the dose does not appear to have recently changed. Plan: Inpatient admission Neurochecks Follow mental status with correction of sodium Hyponatremia. Etiology is unclear. Her diet is low-sodium at her facility due to requirements of other residents. She is not able to add salt to her food. She does have a chronic dry mouth but sips of water and does not like to drink a lot of fluids due to chronic incontinence of urine. No evidence FLOOR SUPERVISOR process. Could be related to chronic pulmonary disease. She did respond to fluids during her last hospitalization. She has been started on hypertonic saline in the emergency department. Plan: Serial sodiums, target correction no more than 0.5 mEq/hour. Adjust rate of infusion as needed. Urinary tract infection. Patient with leukocytes as well as bacteria in urinalysis. Plan: Begin ceftriaxone, follow-up culture. Hypertension. Recently has started antihypertensives. Plan: Continue Parkinson's disease. Early onset. Her neighbor/"adopted" granddaughter was wondering whether the carbidopa/levodopa could be causing alterations in mental status, though she's been taking it for several days without apparent side effect. I'm plan: Physical therapy evaluation, continue with Sinemet. Depression with anxiety. On Abilify as outpatient. Psychiatry notes reviewed at last hospitalization. Plan: Continue with home regimen. CODE STATUS: Patient brings a POST form indicating full code. It is thus ordered.
[2018-05-25 15:27] LABS: Osmolality,Urine 338 mOsm/kg (80-1000)
[2018-05-25 15:33] LABS: Appearance,Urine CLOUDY; Bacteria,Urine 0 /hpf (0); Bilirubin,Urine NEG (NEG); Color,Urine AMBER; Glucose,Urine (UA) NEGATIVE (NEG); Leukocyte Esterase,Urine 500 /uL (NEG); Mucus,Urine MOD /hpf (0); Protein,Urine 30 mg/dL (NEG); Specific Gravity,Urine 1.012 (1.000-1.035); Urine Blood 0.2 mg/dL (<0.03); Urine Hyaline Cast 4 /lpf (0-2); Urine RBC 3 /hpf (0-1); Urine Squamous Epithelial Cell 0 /hpf (0-4); Urine WBC > 182 /hpf (0-4); Urobilinogen,Urine NEG (NEG)
--- NOTE | 2018-05-25 15:54 | Cat Scan Report ---
CLINICAL INFORMATION: Unresponsive COMPARISON: 09/06/2016 TECHNIQUE: 2.5 mm helical slices were obtained in the skull base to vertex. Following reconstruction, axial reformatted images were reviewed at bone and parenchymal windows. The exam was performed using radiation dose optimization techniques including, but not limited to, automated exposure control, adjustment of the mA and/or kV according to patient size and use of iterative reconstruction technique. FINDINGS: The ventricles, sulci, fissures, and cisterns are symmetrically enlarged compatible with moderate age-related atrophy - no subdural hemorrhage or extra-axial fluid collection or mass appreciated. Since the comparison study, moderate remote infarct has developed within the right lentiform nucleus and anterior limb of the right internal capsule. There is also a moderate size remote lacunar infarct in the head of the caudate nucleus and anterior limb left internal capsule - this was also seen on previous study. Patchy chronic ischemic changes noted in the cerebral white matter. The cortical medullary junction is slightly indistinct and the left cerebral hemisphere lower attenuation suggestive, but not diagnostic, of early acute left MCA infarct. There is no evidence of hemorrhage. Bone windows show no osseous abnormality IMPRESSION: 1. Moderate atrophy and chronic ischemic changes in deep cerebral white matter. 2. 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 Moderate remote focal infarct of the left caudate nucleus and anterior limb of the left internal capsule was seen on previous study. The. 3. There is no interval hemorrhage; however, there are equivocal secondary sign suggestive, but not diagnostic, of an acute nonhemorrhagic left MCA infarct. Interpreted and Authenticated by: Oscar Mclean 05/25/18
[2018-05-25] MEDS ORDERED: ACETAMINOPHEN 325 MG TABLET PO PRN (16:30)
[2018-05-25] MEDS ORDERED: ONDANSETRON 4 MG/2 ML VIAL IV PRN (16:30)
[2018-05-25] MEDS ORDERED: SODIUM CHLORIDE 3 % 500 ML IV ONE ×2 (17:00→20:00)
--- NOTE | 2018-05-25 19:41 | Magnetic Resonance Report ---
CLINICAL INFORMATION: Decreased consciousness evaluate for CVA COMPARISON: None. TECHNIQUE:Sagittal T1 FLAIR, axial T1 FLAIR, T2 FLAIR propeller, T2 propeller, gradient, diffusion, ADC and coronal T2 weighted images were acquired. FINDINGS: Motion artifact minimally degrades the quality of the exam. There is no subdural hemorrhage or other extra-axial fluid collection. Ventricles, sulci, fissures and cisterns are symmetrically enlarged bowel with moderate age-related atrophy. Moderate chronic ischemic changes are noted in the deep cerebral white matter - expected for age. Remote lacunar infarcts in the right lentiform nucleus and anterior limb of the right internal capsule with remote lacunar infarcts head of the left caudate nucleus and scattered within the lentiform nucleus. There is no restricted diffusion to suggest acute infarct. There is no acute intracerebral hemorrhage, mass effect or edema. Signal void within the intracerebral arteries, extra-axial cranial nerves, pituitary and orbits are all normal. IMPRESSION: Moderate atrophy with patchy chronic ischemic changes in the deep cerebral white matter and remote lacunar infarcts in the basal ganglia. There is no acute infarct or hemorrhage. Interpreted and Authenticated by: Oscar Mclean 05/25/18
--- NOTE | 2018-05-25 20:16 | Emergency Department Note ---
ED Note Addendum Note Addendum: I discussed this case with the mid-level provider and agree with the assessment and plan.
[2018-05-25] MEDS: cefTRIAXone 1 GM VIAL IV SCH (21:47)
[2018-05-25] MEDS: HEPARIN 5,000 UNIT/ML VIAL SQ SCH (21:48)
[2018-05-25] MEDS: FAMOTIDINE/PF 20 MG/2 ML VIAL IV SCH (21:48)
[2018-05-25] MEDS: 0.9 % SODIUM CHLORIDE 10 ML SYRINGE IV SCH (21:49)
[2018-05-26] MEDS ORDERED: DEXTROSE 5% IN WATER 500 ML IV SCH (00:15)
[2018-05-26] MEDS ORDERED: hydrALAZINE 20 MG/ML VIAL IV PRN (00:42)
[2018-05-26] MEDS ORDERED: hydrALAZINE 20 MG/ML VIAL ONE (00:48)
[2018-05-26] MEDS: 0.9 % SODIUM CHLORIDE 10 ML SYRINGE IV SCH ×2 (05:49→14:28)
[2018-05-26 06:26] LABS: Basophils # (Auto) 0 K/mcL (0.0-0.3); Basophils % (Auto) 0.3 % (0.0-2.0); Eosinophils # (Auto) 0.1 K/mcL (0.0-0.7); Eosinophils % (Auto) 0.6 % (0.0-7.0); Lymphocytes # (Auto) 1.7 K/mcL (1.5-4.8); Lymphocytes % (Auto) 16.7 % (15.5-49.0); Mean Cell Volume 89.9 fL (80.0-100.0); Mean Corpuscular HGB Conc 33.6 g/dL (31.0-36.0); Mean Corpuscular Hemoglobin 30.2 pg (26.0-34.0); Monocytes % (Auto) 9.4 % (1.0-12.0); Platelet Count 320 K/mcL (140-440); RBC 4.02 M/mcL (4.00-5.20); Red Cell Distribution Width 13.5 % (11.5-14.5)
[2018-05-26 06:55] LABS: ALT/SGPT 11 U/l (0-40); Albumin 3.3 gm/dL (3.2-5.2); Albumin/Globulin Ratio 1.5 (1.0-2.3); Alkaline Phosphatase 63 U/L (39-117); Bilirubin,Direct < 0.2 mg/dL (0.0-0.3); Blood Urea Nitrogen 10 mg/dl (8-23); Gamma Glutamyl Transpeptidase 16 U/L (5-36); Uric Acid 3.4 mg/dL (2.5-8.0)
[2018-05-26] MEDS: HEPARIN 5,000 UNIT/ML VIAL SQ SCH ×2 (09:03→23:42)
[2018-05-26] MEDS: FAMOTIDINE/PF 20 MG/2 ML VIAL IV SCH ×2 (09:03→23:42)
[2018-05-26] MEDS ORDERED: 0.9 % SODIUM CHLORIDE 1,000 ML IV SCH (12:00)
[2018-05-26] MEDS: cefTRIAXone 1 GM VIAL IV SCH (16:54)
[2018-05-26] MEDS ORDERED: SODIUM CHLORIDE 3 % 500 ML IV ONE ×2 (17:00→23:26)
[2018-05-26] MEDS ORDERED: HYDROcodone/APAP 10/325MG TABLET PO PRN (18:07)
[2018-05-26] MEDS ORDERED: DOXEPIN 25 MG CAPSULE PO PRN (18:07)
[2018-05-26] MEDS ORDERED: CELECOXIB 200 MG CAPSULE PO PRN (18:07)
[2018-05-26] MEDS ORDERED: NITROGLYCERIN 0.4 MG TAB.SUBL SL PRN (18:07)
--- NOTE | 2018-05-26 22:13 | Internal Med Progress Note ---
Medical - PN: Subj Patient information: Note initiated : 05/26/18 at 10:08 pm Service Date, if different from initiated Date: [] Patient: Jessica Higgins a 87 y/o F admitted on 05/25/18 for altered LOC. Chief Complaint: f/u encephalopathy Interval history: 05/25 Ms. Higgins is a 87 year old F with a history of hypertension, hypercholesterolemia, recently diagnosed Parkinson's disease, mild chronic hyponatremia who is brought to the emergency department after decreased level of consciousness at her living facility. History is obtained in speaking with Dr. Wood, the patient's friend/neighbor who provides further history as well as reviewing records from the facility. The patient is unable to provide much history at all. The patient was admitted to this facility on due to weakness. She had mild hyponatremia the sodium 127 at that time. She is treated with fluids and her sodium was 130 at discharge. She also was started on antihypertensives , which was resistant to take at first. Apparently she is distrustful of new medications after having a reaction to gabapentin causing hallucinations and "fuzzy thinking". She was discharged this past Tuesday. She had started to work with physical therapy and had a good day yesterday. Apparently this morning at 08 100 she was awake and alert but was not responsive at 10 AM. EMS was summoned, she received Narcan with a possible response. She was still minimally interactive in the ED, received further Narcan without further effect. Evaluation in the emergency department revealed serum sodium of 117. She was started on 3% saline and I was contacted for admission. 05/26 Patient awake and alert, appears to be close to her baseline. Sodium did get 128 overnight, was given back some D5. Today in S was substituted for 3%, sodium did not significantly respond. This evening back on 3% serum sodium. - Constitutional Vitals: Vital Signs Temp Pulse Resp BP Pulse Ox 98 F 65 18 154/70 97 05/26/18 19:00 05/26/18 19:00 05/26/18 19:00 05/26/18 19:00 05/26/18 19:00 Period Temp Pulse Resp BP Sys/Dorman Pulse Ox Last 24 Hr 97.6 F-99.5 F 65 14-20 129-185/47-81 91-97 Intake and Output 05/26/18 05/26/18 05/27/18 13:59 21:59 05:59 Intake Total 660 / 660 260 / 260 Output Total 400 / 400 Balance 660 / 660 -140 / -140 Weight 171 lb 6.4 oz Patient Weight 05/27/18 05:59 Weight 171 lb 6.4 oz Intake & Output: Intake & Output 05/26/18 05/26/18 05/27/18 13:59 21:59 05:59 Intake Total 660 / 660 260 / 260 Output Total 400 / 400 Balance 660 / 660 -140 / -140 Weight 171 lb 6.4 oz Intake: IV 260 / 260 Sodium Chloride 0.9% 1,000 ml @ 260 / 260 50 mls/hr IV .Q20H [facility] Rx#: [id number] Oral 660 / 660 Output: Urine Catheter Amount 400 / 400 Other: Meal Lunch Percent of Meal Consumed 75% Urine Appearance Clear Urine Color Light Gema Uretheral (Fowler) Dark Yellow Urine Odor Normal Exam: General: In bed, no acute distress, awake and alert Chest: Clear, unlabored Cardiovascular: Regular rate and rhythm, no edema Abdomen: Soft, nontender Neuro: Alert, vaguely recalls seeing me from yesterday. Is able to get up to the chair. Calls out frequently. Demonstrates poor short-term memory. Medical - PN: Obj Da - Labs CBC & Chem 7: 05/26/18 04:10 05/26/18 15:53 Labs: Abnormal Lab Results 05/26/18 05/26/18 05/26/18 15:53 10:21 04:10 WBC MPV Gran % Lymph % (Auto) Gran # Lymph # (Auto) Valley # (Auto) POC Sodium Sodium 122 L 123 L 125 L POC Chloride Chloride 86 L Creatinine 0.5 L Glucose POC Glucose POC WB Ioniz Calcium Total Protein 5.5 L Urine Protein Urine Occult Blood Ur Leukocyte Esterase Urine RBC Urine WBC Hyaline Casts 05/26/18 05/26/18 05/25/18 04:10 00:10 22:00 WBC MPV Gran % Lymph % (Auto) Gran # Lymph # (Auto) Valley # (Auto) 1.0 H POC Sodium Sodium 123 L 128 L POC Chloride Chloride Creatinine Glucose POC Glucose POC WB Ioniz Calcium Total Protein Urine Protein Urine Occult Blood Ur Leukocyte Esterase Urine RBC Urine WBC Hyaline Casts 05/25/18 05/25/18 05/25/18 18:45 16:40 14:00 WBC MPV Gran % Lymph % (Auto) Gran # Lymph # (Auto) Valley # (Auto) POC Sodium Sodium 121 L 120 L POC Chloride Chloride Creatinine Glucose POC Glucose POC WB Ioniz Calcium Total Protein Urine Protein 30 A Urine Occult Blood 0.2 A Ur Leukocyte Esterase 500 A Urine RBC 3 H Urine WBC > 182 H Hyaline Casts 4 H 05/25/18 05/25/18 13:10 13:01 WBC 13.3 H MPV 7.3 L Gran % 82.3 H Lymph % (Auto) 8.1 L Gran # 10.9 H Lymph # (Auto) 1.1 L Valley # (Auto) 1.2 H POC Sodium 119 L Sodium 117 L* POC Chloride 81 L Chloride 78 L Creatinine Glucose 121 H POC Glucose 124 H POC WB Ioniz Calcium 1.13 L Total Protein 5.8 L Urine Protein Urine Occult Blood Ur Leukocyte Esterase Urine RBC Urine WBC Hyaline Casts Meds: Medications Acetaminophen (Tylenol) 650 mg PO Q6HP PRN PRN Reason: PAIN/FEVER > 101 Last Admin: 05/26/18 05:10 Dose: 650 mg Hydrocodone Bitart/Acetaminophen ([place] 10/325mg) 1 tab PO Q4H PRN PRN Reason: Pain Amlodipine Besylate (Norvasc) 5 mg PO DAILY [facility] Bupropion HCl (Wellbutrin Xl) 300 mg PO DAILY [facility] Carbidopa/Levodopa (Sinemet 25/100) 1 tab PO TID [facility] Ceftriaxone Sodium (Rocephin) 1 gm IV Q24H [facility] Last Admin: 05/26/18 16:54 Dose: 1 gm Celecoxib (Celebrex) 200 mg PO HS PRN PRN Reason: Pain Citalopram Hydrobromide (Celexa) 20 mg PO BID [facility] Doxepin HCl (Sinequan) 50 mg PO HSP PRN PRN Reason: Insomnia Famotidine (Pepcid) 20 mg IV Q12 [facility] Last Admin: 05/26/18 09:03 Dose: 20 mg Heparin Sodium (Porcine) (Heparin) 5,000 unit SQ Q12 [facility] Last Admin: 05/26/18 09:03 Dose: 5,000 unit Hydralazine HCl (Apresoline) 10 mg IV Q4-6HP PRN PRN Reason: Hypertension Sodium Chloride (Sodium Chloride 3%) 500 mls @ 20 mls/hr IV ONCE ONE Stop: 05/27/18 17:59 Last Admin: 05/26/18 17:19 Dose: 20 mls/hr Isosorbide Mononitrate (Imdur) 30 mg PO QAM [facility] Nitroglycerin (Nitrostat) 0.4 mg SL Q5M PRN PRN Reason: chest pain Non-Formulary Medication (Abilify) 30 mg PO DAILY [facility] Ondansetron HCl (Zofran) 4 mg IV Q4HP PRN PRN Reason: Nausea And Vomiting Oxybutynin Chloride (Ditropan Xl) 5 mg PO QDAY [facility] Sodium Chloride (Saline Flush) 10 ml IV Q8 JUAN Last Admin: 05/26/18 14:28 Dose: Not Given Medical - PN: A/P - Time Spent With Patient Total time spent is greater than 50% in coordination of care (as documented) at patient's floor/unit and/or counseling patient: Greater than 35 minutes (1) Encephalopathy Status: Acute Current Visit: Yes (2) Hyponatremia Status: Acute Current Visit: Yes (3) Hypertension, essential Status: Chronic Current Visit: No - Narrative A/P Narrative: 87-year-old female presenting with altered level of consciousness. Unclear time course, though history obtained from the facility said she was interacting and taking her medications at 8:00 on the morning of presentation. Subsequently about 10 AM she was not responsive. Encephalopathy. Suspected source is hyponatremia, though suspect urinary tract infection may have also been contributing. Resolved with partial correction of hyponatremia and initiation of antibiotics. Plan: Continue to correct sodium, follow mental status. Hyponatremia. Etiology is unclear, responded to 3% saline. Plan: Continue 3% after failure of NS, follow serum sodium, adjust rate as needed. Urinary tract infection. >100K CFU/ml of Escherichia coli on culture. Plan: Continue ceftriaxone, follow-up final sensitivities. Hypertension. Recently has started antihypertensives. Plan: Continue Parkinson's disease. Early onset. Her neighbor/"adopted" granddaughter was wondering whether the carbidopa/levodopa could be causing alterations in mental status, though she's been taking it for several days without apparent side effect. I'm plan: Physical therapy evaluation, continue with Sinemet. Depression with anxiety. On Abilify as outpatient. Psychiatry notes reviewed at last hospitalization. Plan: Continue with home regimen. Medical - PN: Qual - Stroke Onset of Symptoms Date: 05/25/18 Onset of Symptoms Time: 10:00 Symptom Onset Unknown: Yes - VTE Deep Vein Thrombosis/Pulmonary Embolism Present on Admission: No
[2018-05-26] MEDS: CITALOPRAM 20 MG TABLET PO SCH (23:41)
[2018-05-26] MEDS: CARBIDOPA/LEVODOPA 25/100 TABLET PO SCH (23:41)
[2018-05-27] MEDS: 0.9 % SODIUM CHLORIDE 10 ML SYRINGE IV SCH ×2 (03:48→05:04)
[2018-05-27 07:24] LABS: Blood Urea Nitrogen 9 mg/dl (8-23)
[2018-05-27] MEDS: FAMOTIDINE/PF 20 MG/2 ML VIAL IV SCH (08:35)
[2018-05-27] MEDS: CARBIDOPA/LEVODOPA 25/100 TABLET PO SCH (08:36)
[2018-05-27] MEDS: HEPARIN 5,000 UNIT/ML VIAL SQ SCH ×2 (08:37→09:45)
[2018-05-27] MEDS: CITALOPRAM 20 MG TABLET PO SCH (08:37)
[2018-05-27] MEDS ORDERED: amLODIPine 5 MG TABLET PO SCH (09:00)
[2018-05-27] MEDS ORDERED: ISOSORBIDE MONONITRATE 30 MG TAB.XL.24H PO SCH (09:00)
[2018-05-27] MEDS ORDERED: ARIPIPRAZOLE 20 MG TABLET PO SCH (09:00)
[2018-05-27] MEDS ORDERED: SODIUM CHLORIDE 1 GM TABLET PO SCH (09:00)
[2018-05-27] MEDS ORDERED: buPROPion 150 MG TAB.XL.24H PO SCH (09:00)
[2018-05-27] MEDS ORDERED: OXYBUTYNIN CHLORIDE 5 MG TAB.XL.24H PO SCH (09:00)
[2018-05-27] MEDS ORDERED: SODIUM CHLORIDE 3 % 500 ML IV ONE (09:06)
--- NOTE | 2018-05-27 10:55 | Discharge Summary ---
Medical - DS: Prov Patient information: Note initiated : 05/27/18 at 10:52 am Service Date, if different from initiated Date: [] Patient: Jessica Higgins 87 y/o F admitted on 05/25/18 for altered LOC. Date of admission: 05/25/18 15:55 Discharge date: 05/27/18 Primary care physician: Swati Randhawa Admitting clinician: Ramona Pizano Consults: 05/25/18 Consult to Physician [CONS] Stat Comment: Consulting Provider: Ramona Pizano Reason For Exam: Physician to Consult Discharging clinician: Ramona Pizano Medical - DS: Meds - Discharge Medications Prescriptions: Amoxicillin 875 mg PO Q12H #5 tab HYDROcodone/APAP 10/325MG [[place] 10-325Mg] 1 tab PO Q4H PRN #15 tab PRN Reason: Pain Active and Home Medications: Home Medications cholecalciferol (vitamin D3) 5,000 unit capsule 5,000 unit PO .COMPLEX #4 cap [Rx Confirmed 05/25/18 Last Taken 05/24/18 0741] tizanidine 4 mg capsule 2 mg PO TID #135 cap 06/04/15 [Rx Confirmed 05/25/18 Last Taken 05/25/18 0812] citalopram 20 mg tablet 20 mg PO BID 30 Days #60 tab 09/05/15 [Rx Confirmed Last Taken 05/24/18 0812] ergocalciferol (vitamin D2) 50,000 unit capsule 50,000 unit PO QWEEK #8 cap 05/12 [Rx Confirmed 05/25/18 Last Taken Unknown] oxybutynin chloride ER 5 mg tablet,extended release 24 hr 5 mg PO QDAY #30 tab 09/05/15 [Rx Confirmed 05/25/18 Last Taken Unknown] isosorbide mononitrate ER 30 mg tablet,extended release 24 hr 30 mg PO QAM #90 tab 09/09/15 [Rx Confirmed 05/25/18 Last Taken 05/25/18 0812] albuterol sulfate HFA 90 mcg/actuation aerosol inhaler 2 puff INHALATION Q6H # 18 g 09/29/15 [Rx Confirmed 05/25/18 Last Taken 05/25/18 1130] nitroglycerin 0.4 mg sublingual tablet 0.4 mg SUBLINGUAL Q5M PRN #25 tab [Rx Confirmed 05/25/18 Last Taken Unknown] Abilify 30 mg PO DAILY 05/18/18 [History Confirmed 05/25/18 Last Taken 05/25/18 0745] buPROPion HCL [Bupropion HCl ER] 300 mg PO DAILY 05/18/18 [History Confirmed Last Taken 05/25/18 0812] Doxepin [Sinequan] 50 - 100 mg PO HSP PRN 05/19/18 [History Confirmed 05/25/18 Last Taken Unknown] Celecoxib [Celebrex] 200 mg PO HS PRN #30 cap 05/20/18 [Rx Confirmed 05/25/18 Last Taken Unknown] Carbidopa-Levodopa 25-100 Tab 25 - 100 mg PO TID 05/21/18 [History Confirmed Last Taken 05/25/18 0812] HYDROcodone/APAP 10/325MG [[place] 10-325Mg] 1 tab PO Q4H PRN #15 tab 05/22/18 [ Rx Confirmed 05/25/18 Last Taken Unknown] amLODIPine [Norvasc] 5 mg PO DAILY #30 tab 05/22/18 [Rx Confirmed 05/25/18 Last Taken 05/25/18 0812] HYDROcodone/APAP 10/325MG 1 tablet PO Q4 PRN 05/25/18 [History Confirmed Last Taken 05/25/18 0812] Medical - DS: Hosp Hospital course: 05/25 Ms. Higgins is a 87 year old F with a history of hypertension, hypercholesterolemia, recently diagnosed Parkinson's disease, mild chronic hyponatremia who is brought to the emergency department after decreased level of consciousness at her living facility. History is obtained in speaking with Dr. Wood, the patient's friend/neighbor who provides further history as well as reviewing records from the facility. The patient is unable to provide much history at all. The patient was admitted to this facility on due to weakness. She had mild hyponatremia the sodium 127 at that time. She is treated with fluids and her sodium was 130 at discharge. She also was started on antihypertensives , which was resistant to take at first. Apparently she is distrustful of new medications after having a reaction to gabapentin causing hallucinations and "fuzzy thinking". She was discharged this past Tuesday. She had started to work with physical therapy and had a good day yesterday. Apparently this morning at 08 100 she was awake and alert but was not responsive at 10 AM. EMS was summoned, she received Narcan with a possible response. She was still minimally interactive in the ED, received further Narcan without further effect. Evaluation in the emergency department revealed serum sodium of 117. She was started on 3% saline and I was contacted for admission. CT of the head showed evidence of old cerebrovascular disease and possible acute left MCA stroke. 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 05/26 Patient awake and alert, appears to be close to her baseline. Sodium did get 128 overnight, was given back some D5. Today in S was substituted for 3%, sodium did not significantly respond. This evening back on 3% serum sodium. 05/27 Remain stable. Awake and alert. No new complaints. Confused as to whether or not she has problems with high sodium, low sodium or high cholesterol. Apparent short-term memory issues in the last 36 hours. Suspect this is her baseline. She states she does drink a lot of water, which is likely contributing to her hyponatremia. Advised her to decrease her water intake, also told her she's been started on salt tablets to help balance the salt in her blood. She'll be discharged on a fluid restriction. Urine culture positive for Escherichia coli, pansensitive, will complete 5 days of therapy with amoxicillin. Discharge diagnosis: Metabolic Encephalopathy due to hyponatremia and acute cystitis Secondary discharge diagnosis: Hyponatremia, most consistent with SIADH with elevated urine OSM and sodium in setting of apparent euvolemia. Fluid restriction and salt supplements. Urinary tract infection with roth-sensitive Escherichia coli Hypertension Parkinson's disease, new onset Depression with anxiety - Time Spent with Patient Total time spent providing and/or coordinating discharge services: Greater than 30 minutes Medical - DS: Exam - Constitutional Vitals: Vital Signs Temp Pulse Resp BP BP BP Pulse Ox 05/27/18 08:00 99.8 F H 75 18 170/71 93 05/27/18 04:00 97.8 F 70 16 132/62 95 05/26/18 23:00 98 F 72 20 190/77 190/77 94 05/26/18 19:00 98 F 65 18 154/70 97 05/26/18 18:39 62 05/26/18 15:00 98.7 F 16 179/81 96 05/26/18 11:26 97.6 F 14 159/67 96 Intake and Output 05/26/18 05/27/18 05/27/18 21:59 05:59 13:59 Intake Total 260 / 260 130 / 130 97 / 97 Output Total 400 / 400 1100 / 1100 200 / 200 Balance -140 / -140 -970 / -970 -103 / -103 Intake: IV 260 / 260 130 / 130 97 / 97 Sodium Chloride 0.9% 1,000 ml @ 260 / 260 50 mls/hr IV .Q20H [facility] Rx#: [id number] Sodium Chloride 3% 500 ml @ 20 130 / 130 mls/hr IV ONCE ONE Rx#: [id number] Output: Urine Catheter Amount 400 / 400 1100 / 1100 200 / 200 Other: Urine Appearance Clear Clear Clear Uretheral (Fowler) Clear Urine Color Light Gema Straw Bright Yellow Uretheral (Fowler) Straw Urine Odor Normal Strong Uretheral (Fowler) Normal Weight 171 lb 6.4 oz General appearance: cooperative, no acute distress - Respiratory Respiratory exam: Present: normal respiratory exam, CTAB - Cardiovascular Cardiovascular exam: Present: normal rate and rhythm, systolic murmur - GI/Abdominal GI/Abdominal exam: Present: normal bowel sounds, soft. Absent: tenderness - Neurological Exam Neurological exam: Present: alert Additional comments: oriented to self, confused on reason for visit; generally weak Medical - DS: Data Labs on day of discharge: Labs from last 24 hours 05/27/18 05/26/18 05/26/18 04:15 22:05 15:53 Sodium 128 L 128 L 122 L Potassium 3.4 Chloride 90 L Carbon Dioxide 26 Anion Gap 12.0 BUN 9 Creatinine 0.4 L GFR Calculation 95 Glucose 96 Calcium 8.8 05/26/18 10:21 Sodium 123 L Potassium Chloride Carbon Dioxide Anion Gap BUN Creatinine GFR Calculation Glucose Calcium - Impressions CT scan - head IMPRESSION: 1. Moderate atrophy and chronic ischemic changes in deep cerebral white matter. 2. 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 Moderate remote focal infarct of the left caudate nucleus and anterior limb of the left internal capsule was seen on previous study. 3. There is no interval hemorrhage; however, there are equivocal secondary sign suggestive, but not diagnostic, of an acute nonhemorrhagic left MCA infarct. MRI - head IMPRESSION: Moderate atrophy with patchy chronic ischemic changes in the deep cerebral white matter and remote lacunar infarcts in the basal ganglia. There is no acute infarct or hemorrhage. Chest x-ray IMPRESSION: Moderate stable cardiomegaly - no acute disease Medical - DS: A/P - Patient/Caregiver Discharge Instructions Activity: as per physical therapy, increase activity as tolerated Diet: Regular Diet (free water restrict to 1000 ml/day; OK to have juices with electrolytes) Other Amb Orders: OT Discharge Order Location: None Selected Physical Therapy at Discharge - General Location: None Selected - Problem Maintenance (1) Encephalopathy Status: Resolved (2) Hyponatremia Status: Chronic (3) Hypertension, essential Status: Chronic - Follow up Plan Follow up with: Swati Randhawa ARNP [Primary Care Provider] - Disposition: Xfer SNF Prognosis: Fair Rehab Potential: Fair I certify that the patient requires SNF services: Yes Overall status at discharge: patient is back to baseline Medical - DS: Qual - VTE Deep Vein Thrombosis/Pulmonary Embolism Present on Admission: No
== END 2018-05-27 12:00 | DRG 643 ==
LOC: ED 12:26 → ICU 15:55
PROVIDERS: ADMIT Internal Medicine; ATTEND Internal Medicine
CPT/HCPCS: 80047; 85014; J0360; J0696; J1644; J2310; J7030; J7070